=== PATIENT | male | born 1955 | race African-American/Black ===

== ENCOUNTER 2024-01-04 00:53 | Outpatient (CLI) | payer MEDICARE, MEDICAID, SELFPAY ==
[2024-01-04 03:31] LABS: Occult Blood,Stool Positive (Negative)
== END 2024-01-04 23:59 | disposition home or self-care (01) ==
LOC: LAB.DROPOF 01:05
PROVIDERS: PCP Internal Medicine Adolescent Medicine; Visit Provider Internal Medicine Adolescent Medicine
DX: K92.1 Melena (principal)
CPT/HCPCS: 82272; G0328

== ENCOUNTER 2024-02-25 11:53 | Outpatient (CLI) | payer MEDICARE, MEDICAID, SELFPAY ==
[2024-02-25 12:10] LABS: Basophils % 0.6 % (0.1-2.0); Eosinophils # 0.1 K/mm3 (0.0-0.4); Hematocrit 39.3 % (42.0-52.0); Hemoglobin 12.4 g/dL (14.1-18.0); Lymphocytes # 1.3 K/mm3 (0.7-4.5); Lymphocytes % 37.3 % (10-50); Mean Corpuscular HGB Conc 31.4 g/dL (31.8-35.4); Mean Corpuscular Hemoglobin 30.3 pg (27.0-31.2); Mean Corpuscular Volume 96.3 fl (80-94); Mean Platelet Volume 10.1 fl (7.4-10.4); Monocytes # 0.3 K/mm3 (0.1-1.0); Monocytes % 8.7 % (1.7-9.3); Neutrophils # 1.8 K/mm3 (1.8-7.8); Neutrophils % 51.4 % (37.0-80.0); Platelet Count 144 K/mm3 (142-424); Red Blood Count 4.08 M/mm3 (4.60-6.20); Red Cell Distribution Width 15.2 % (11.5-17.5); White Blood Count 3.6 K/mm3 (4.8-10.8)
[2024-02-25 12:28] LABS: Chloride 110 mmol/L (98-107); Potassium 4.5 mmoL/L (3.5-5.1); Sodium 139 mmol/L (136-145)
[2024-02-25 12:31] LABS: Anion Gap 8.5 mEq/L (5-15); Blood Urea Nitrogen 14 mg/dl (9-20); Calcium 8.9 mg/dl (8.4-10.2); Carbon Dioxide 25 mmol/L (22.0-30.0); Estimated Glomerular Filt Rate 74 ml/min (>60); GFR (African American) 90 ML/MIN (>60); Glucose 89 mg/dl (74-100)
== END 2024-02-25 23:59 | disposition home or self-care (01) ==
LOC: LAB.DROPOF 11:58
PROVIDERS: PCP Internal Medicine Adolescent Medicine; Visit Provider Nurse Practitioner Family
DX: E55.9 Vitamin D deficiency, unspecified (principal)
CPT/HCPCS: 80048; 85025

== ENCOUNTER → 2024-04-02 11:02 | Day surgery (SDC) | payer MEDICARE, SELFPAY ==
--- NOTE | 2024-04-02 13:36 | SUR.PREOP ---
1115: Upon preop interview, discovered per the patient that he had not received a bowel prep and he had eaten a full breakfast and drank a soft drink 30 minutes prior to arrival. Spoke with Kwasi Turner CRNA and pt was canceled. Called to reschedule procedures for 05/28. Then called [facility] to inform the pt's resident nurse of the procedures being canceled and when his new date is.
== END ==
PROVIDERS: PCP Internal Medicine; Visit Provider Surgery
PROC: 0DJ08ZZ Inspection of Upper Intestinal Tract, Via Natural or Artificial Opening Endoscopic (ICD-10-PCS; CPT 43235; principal; 2024-04-02 12:30)
DX: Z53.8 Procedure and treatment not carried out for other reasons (principal)

== ENCOUNTER 2024-05-28 08:30 | Day surgery (SDC) | payer MEDICARE, SELFPAY ==
[2024-05-28 08:51] VITALS: BP 150/94; PULSE 82; RESP 16; TEMP 36.4; O2SAT 95; BMI 23.7
[2024-05-28] MEDS: LACTATED RINGERS 1000ML 1,000 ML 25 ML IV (09:10)
--- NOTE | 2024-05-28 09:16 | P.PCN_ITS ---
Procedure: Date: 05/28/24 Patient Date of :: 1955 Procedure Performed:: Esophagogastroduodenoscopy with biopsy Colonoscopy Indications:: Anemia Performing Provider:: Shun Weinstein MD Referring Provider:: . Sedation:: Monitored anesthesia care Procedure:: After informed consent was obtained the patient was taken to the endoscopy suite. Sedation ensued after the patient was transferred to the left lateral decubitus position. Pulse, blood pressure, and oxygen saturation were monitored throughout the procedure. The endoscope was advanced beyond the duodenal bulb. Retroflexion within the gastric lumen was accomplished. The gastroscope was carefully removed. Digital rectal exam revealed no significant abnormality. The colonoscope was placed in position. The entire colon was evaluated. The c olonoscope was carefully removed and the patient was transferred to recovery in stable condition. Please see findings and specimens below for detail. Findings:: Gastroesophageal junction at 40 cm Mild streaking gastritis Bowel preparation moderate Fairly profound spasticity Scattered diverticulosis Hemorrhoidal cushions Specimens:: Antral biopsy Recommendations:: Follow-up pathology Likely short-repeat colonoscopy warranted (after consideration of barium enema) Consider small bowel follow-through followed by capsule endoscopy Consider barium enema secondary to profound spasticity Complications:: No immediate Estimated blood obtained (mL): 1 Colonoscopy Component Colonoscopy Component Was a colonoscopy performed during today's procedure?: Yes Recommended follow up colonoscopy of at least 10 years?: No If no, follow up colonoscopy recommended in ___ years?: (See above) Reason for not recommending >/= 10 yr follow-up interval?: (See above)
--- NOTE | 2024-05-28 09:17 | EXP.ANES.CKL ---
[facility] Disclaimer: The information contained in this section may have been updated after the patient was seen, as this information can be updated by other users. Medical History Hypertension Diverticulitis Cirrhosis of liver Hyperlipidemia Cerebral infarction Spondylosis Inguinal hernia Chronic pain Depression Hypercholesteremia GERD (gastroesophageal reflux disease) Surgical History H/O colonoscopy Previous back surgery Family History Other No significant family history Social History Smoking Status: Current every day smoker alcohol intake: former substance use type: denies use current occupational status: disabled Travel in the last 8 weeks: None adopted: No caregiver/support person: No foster care: No household members: other housing: correction lives independently: No marital status: caffeine: No [facility] Anesthesia Checklist Patient Identification Patient Identification: Arm Band and Verbal (Name & ) Structural Data Admitted From: Home Planned Operative Procedure/s: EGD/Colonoscopy Consent for Planned Operative Procedure(s) Verified: Yes Verified Documents: Surgical Consent and History and Physical NPO Status Verified Time NPO: 00:00 Additional verifications Anesthesia Reactions: No Airway Assessment Mallampati Score:: Class II C-Spine Mobility Assessed: Yes TMJ Mobility Assessed: Yes Dentition: Dentures-poor fitting (Removed) Neurological Assessment Level of Consciousness: Awake Hx Seizures: No Numbness or tingling in extremities: No Anesthesia Plan Anesthesia Risk discussed: Yes Anesthesia Plan: Verified ASA Class: III Anesthesia Type: MAC
[2024-05-28 09:58] VITALS: BP 122/86; PULSE 75; RESP 18; O2SAT 97
[2024-05-28 10:08] VITALS: BP 148/94; PULSE 75; RESP 18; O2SAT 97
[2024-05-28 10:18] VITALS: BP 156/96; PULSE 72; RESP 18; O2SAT 98
[2024-05-28 10:28] VITALS: BP 168/96; PULSE 74; RESP 18; O2SAT 98
== END 2024-05-28 10:28 | disposition home or self-care (01) ==
PROVIDERS: PCP Internal Medicine; Visit Provider Surgery
PROC: 0DJ08ZZ Inspection of Upper Intestinal Tract, Via Natural or Artificial Opening Endoscopic (ICD-10-PCS; CPT 43235; principal; 2024-05-28 09:30)
DX: D64.9 Anemia, unspecified (principal); K29.70 Gastritis, unspecified, without bleeding
CPT/HCPCS: 43239; 88305; J7120

== ENCOUNTER 2024-08-28 08:22 | Outpatient (CLI) | payer MEDICARE, SELFPAY ==
--- NOTE | 2024-08-28 08:28 | US_ITS ---
FINAL REPORT CLINICAL HISTORY: ELEVATED LIVER ENZYMES FINDINGS: RIGHT UPPER QUADRANT ULTRASOUND Technique: Ultrasound images of the right upper quadrant were obtained. The liver parenchyma is diffusely heterogeneous. Multiple low-attenuation lesions are seen throughout the liver, largest measures 2.1 x 1.2 cm. Multiple gallstones are identified. No gallbladder wall thickening is identified. Common duct is normal. The right kidney is unremarkable. IMPRESSION: Multiple gallstones. Diffusely heterogeneous liver with multiple low-attenuation lesions, indeterminate. Liver protocol CT is recommended to better characterize. Reviewed, Interpreted and Dictated by Pedrito Baker MD Transcribed by Izabela Neely Authenticated and [facility]
== END 2024-08-28 23:59 | disposition home or self-care (01) ==
LOC: RAD 08:23
PROVIDERS: PCP Nurse Practitioner Family; Visit Provider Nurse Practitioner Family
DX: R74.8 Abnormal levels of other serum enzymes (principal); K74.60 Unspecified cirrhosis of liver
CPT/HCPCS: 76705

== ENCOUNTER 2024-09-16 13:32 | Outpatient (CLI) | payer MEDICARE, SELFPAY ==
--- NOTE | 2024-09-16 13:34 | CT_ITS ---
FINAL REPORT TECHNIQUE: Axial CT images of the abdomen were obtained with IV contrast only. Coronal reformatted images were also obtained. This study was performed with techniques to keep radiation doses as low as reasonably achievable (ALARA). Individualized dose reduction techniques using automated exposure control or adjustment of mA and/or kV according to the patient''s size were employed. CLINICAL HISTORY: LIVER PROTOCOL, liver lesions seen on ultrasound COMPARISON: Ultrasound dated 08/28/2024 FINDINGS: There is a 9 mm nodule in the right lower lobe. Lung bases are otherwise clear. The liver is nodular in contour consistent with cirrhosis. Regenerative nodules are present. This exam was not performed as a Liver Protocol. No hypervascular lesions are identified given the limitations of this exam. The portal vein is patent. There are gallstones in the gallbladder. The spleen, adrenal glands, and pancreas are without acute abnormality. Bilateral hypodense renal lesions are likely cysts. There is no hydronephrosis. The GI tract demonstrates no obstruction. There is diverticulosis with no evidence of diverticulitis. There is a small amount of perihepatic ascites. There are multiple small celiac lymph nodes. A soft tissue nodule medial to the IVC, posterior to the portal vein, measures 35 mm. This could represent an enlarged lymph node or a partially exophytic hepatic regenerative nodule. There are mildly prominent portal lymph nodes. IMPRESSION: 9 mm right lower lobe nodule. 3-month follow-up chest CT or PET/CT is recommended for further evaluation. Cirrhosis. Regenerative nodules and heterogeneity may have accounted for the appearance on ultrasound. Exam was not performed as liver protocol. There is no convincing lesion to suggest hepatocellular carcinoma. Consider liver protocol MRI. 35 mm nodule, medial to the IVC, could be a regenerative nodule. A lymph node is not excluded. This could also be evaluated with MRI. Reviewed, Interpreted and Dictated by Idalia Alvarado MD Transcribed by Lianna Monroe Authenticated and [facility]
[2024-09-16] MEDS: SODIUM CHLORIDE 0.9% 10ML SYR (RAD ONLY) 10 ML IV (13:59)
[2024-09-16] MEDS: IOPAMIDOL-370 (76%);100ML BOTTLE 75 ML IV (13:59)
== END 2024-09-16 23:59 | disposition home or self-care (01) ==
LOC: RAD 13:32
PROVIDERS: PCP Nurse Practitioner Family; Visit Provider Nurse Practitioner Family
DX: K76.9 Liver disease, unspecified (principal); K74.60 Unspecified cirrhosis of liver
CPT/HCPCS: 74160; Q9967

== ENCOUNTER 2024-10-25 11:14 | Outpatient (CLI) | payer MEDICARE, SELFPAY ==
[2024-10-25 11:33] LABS: Basophils % 0.6 % (0.1-2.0); Eosinophils # 0.1 K/mm3 (0.0-0.4); Eosinophils % 1.8 % (0.1-12.0); Hematocrit 35.7 % (42.0-52.0); Hemoglobin 11.8 g/dL (14.1-18.0); Lymphocytes # 1.1 K/mm3 (0.7-4.5); Lymphocytes % 31.9 % (10-50); Mean Corpuscular HGB Conc 33.1 g/dL (31.8-35.4); Mean Corpuscular Hemoglobin 30.1 pg (27.0-31.2); Mean Corpuscular Volume 91.1 fl (80-94); Mean Platelet Volume 12.7 fl (7.4-10.4); Monocytes # 0.4 K/mm3 (0.1-1.0); Monocytes % 11.4 % (1.7-9.3); Neutrophils # 1.9 K/mm3 (1.8-7.8); Platelet Count 219 K/mm3 (142-424); Red Blood Count 3.92 M/mm3 (4.60-6.20); Red Cell Distribution Width 16.3 % (11.5-17.5); White Blood Count 3.4 K/mm3 (4.8-10.8)
[2024-10-25 12:01] LABS: Anion Gap 13.9 mEq/L (5-15); Blood Urea Nitrogen 22 mg/dl (9-20); Calcium 9.4 mg/dl (8.4-10.2); Carbon Dioxide 25 mmol/L (22.0-30.0); Chloride 101 mmol/L (98-107); Estimated Glomerular Filt Rate 40 ml/min (>60); GFR (African American) 49 ML/MIN (>60); Glucose 233 mg/dl (74-100); Potassium 4.9 mmoL/L (3.5-5.1); Sodium 135 mmol/L (136-145)
== END 2024-10-25 23:59 | disposition home or self-care (01) ==
LOC: LAB.DROPOF 11:14
PROVIDERS: PCP Internal Medicine Adolescent Medicine; Visit Provider Nurse Practitioner Family
DX: K70.30 Alcoholic cirrhosis of liver without ascites (principal); K21.9 Gastro-esophageal reflux disease without esophagitis; E78.00 Pure hypercholesterolemia, unspecified; F32.A Depression, unspecified; G89.29 Other chronic pain
CPT/HCPCS: 80048; 85025

== ENCOUNTER 2024-11-26 10:21 | Outpatient (CLI) | payer MEDICARE, SELFPAY ==
--- NOTE | 2024-11-26 10:46 | ECG_ITS ---
APPROVED REPORT Exam: Resting ECG HR:56 bpm ECG Measurements Heart Rate 56 AXES CO 206 P 80 QRSd 95 QRS -31 QT 416 T 43 QTc 409 Conclusion SINUS BRADYCARDIA WITH SINUS ARRHYTHMIA LEFT AXIS DEVIATION [QRS AXIS < -30] POSSIBLE ANTERIOR MYOCARDIAL INFARCTION , OF INDETERMINATE AGE [30 ms Q WAVE IN V3/V4, OR R < 0.2 mV IN V4] ABNORMAL ECG UNCONFIRMED REPORT Electronically signed by : Vern King MD 11/27/2024 07:53:55
[2024-11-26 11:17] LABS: Alanine Aminotransferase 70 U/L (12-78); Albumin Level 3.6 g/dl (3.5-5.0); Albumin/Globulin Ratio 0.9 (1.1-1.8); Alkaline Phosphatase 779 U/L (38-126); Anion Gap 12.1 mEq/L (5-15); Aspartate Amino Transferase 434 U/L (17-59); Bilirubin,Total 0.8 mg/dl (0.2-1.3); Blood Urea Nitrogen 17 mg/dl (9-20); Calcium 9.7 mg/dl (8.4-10.2); Carbon Dioxide 26 mmol/L (22.0-30.0); Chloride 104 mmol/L (98-107); Estimated Glomerular Filt Rate 50 ml/min (>60); GFR (African American) 61 ML/MIN (>60); Globulin 4.1 g/dL (1.3-3.2); Glucose 82 mg/dl (74-100); Potassium 5.1 mmoL/L (3.5-5.1); Sodium 137 mmol/L (136-145); Total Protein,Serum 7.7 g/dl (6.3-8.2)
[2024-11-26 11:32] LABS: INR 1.24 (0.9-1.1); Prothrombin Time 13.6 seconds (10.1-12.5)
[2024-11-26 11:34] LABS: Basophils % 0.2 % (0.1-2.0); Eosinophils # 0.1 Kmm3 (0.0-0.4); Eosinophils % 1.1 % (0.1-12.0); Hematocrit 39.7 % (42.0-52.0); Hemoglobin 13.4 g/dL (14.1-18.0); Lymphocytes # 0.8 K/mm3 (0.7-4.5); Lymphocytes % 17.9 % (10-50); Mean Corpuscular HGB Conc 33.8 g/dL (31.8-35.4); Mean Corpuscular Volume 88.8 fl (80-94); Monocytes # 0.3 K/mm3 (0.1-1.0); Monocytes % 6.2 % (1.7-9.3); Neutrophils # 3.5 K/mm3 (1.8-7.8); Neutrophils % 74.4 % (37.0-80.0); Nucleated Red Blood Cells # 0 10^3/uL; Nucleated Red Blood Cells % 0 %; Platelet Count 306 K/mm3 (142-424); Red Blood Count 4.47 M/mm3 (4.60-6.20); Red Cell Distribution Width 15.6 % (11.5-17.5); Red Cell Distribution Width-SD 50.4 fL; White Blood Count 4.7 K/mm3 (4.8-10.8)
== END 2024-11-26 23:59 | disposition home or self-care (01) ==
LOC: PREOP 10:22
PROVIDERS: PCP Internal Medicine; Visit Provider Surgery
DX: I49.8 Other specified cardiac arrhythmias (principal); K80.20 Calculus of gallbladder without cholecystitis without obstruction; R00.1 Bradycardia, unspecified; R94.31 Abnormal electrocardiogram [ECG] [EKG]
CPT/HCPCS: 80053; 85025; 85610; 93005

== ENCOUNTER 2024-12-03 10:06 | Outpatient (CLI) | payer MEDICARE, SELFPAY ==
--- NOTE | 2024-12-03 | CA_ITS ---
APPROVED REPORT Exam: Pharmacologic Technologist: Claribel Anderson Ht: 6 ft 2 in Wt: 170 lbs BSA: 2.03 m2 HR: 56 bpm BP: 151/90 mmHg Stress Test Details Test: Lexiscan HR Resting HR: 56 bpm Max Heart Rate (APMHR): 151.766535 bpm Max HR Achieved: 73 bpm Target HR (85% APMHR): 128.197427 bpm % of APMHR: 48.34 Recovery HR: 69 bpm BP Resting BP: 151.0/90.0 mmHg Max BP: 151.0/90.0 mmHg Recovery BP: 130.0/75.0 mmHg ECG Stress ECG Conclusion Symptoms: Dizziness Arrhythmias/Ectopy: PAC ST-T Changes: Less than [address] depression. Conclusion: EKG unremarkable due to Lexiscan infusion. Electronically signed by : Michelle Gatica MD 12/04/2024 13:02:42
--- NOTE | 2024-12-03 10:00 | CA_ITS ---
APPROVED REPORT EXAM: Comprehensive 2D, Doppler, and color-flow Echocardiogram Children[facility]S Nursery Assistant: Mirtha Huddleston CRT Ht: 6 ft 2 in Wt: 170lbs BSA: 2.03 BP: 153/84 mmHg Indications: Abnormal ECG, Chest Pain, CVA/TIA, Hyperlipidemia, Hypertension/HDD, Pre-Op, cirrhosis Pt unable to lay on side for additional apical images due to hip pain. s/p cva, w/c 2D Dimensions LA Volume 53.80 mL LA Volume Index 25.90 mL/m2 (M/F) 16-34 M-Mode Dimensions RVDd 3.47 cm (0.9-2.6) LA Diam 3.02 cm (1.9-4.0) LVDd 4.63 cm (3.5-5.7) LVDs 2.41 cm (3.5-5.7) IVSd 1.16 cm (0.6-1.1) PWd 1.28 cm (0.6-1.1) EF (Teich) 79.40% FS 47.90% EDV (Teich) 98.80 mL TAPSE 1.58 (<1.7) ESV (Teich) 20.40 mL LV Diastology E Decel Time 313 (160-240 msec) E/A Ratio 0.73 MED A' 8.00 cm/s LAT A' 8.30 cm/s Aortic Valve AO Peak GR. 5.50 mmHg Mitral Valve MV A Velocity 74.0 (40-130 cm/s) E/A Ratio 0.73 Pulmonary Valve PV Peak Velocity 94.0 (50-150 cm/s) Tricuspid Valve TR P. Velocity 307.00 cm/s RAP Estimate 10.00 mmHg RVSP 47.60 mmHg Left Ventricle The left ventricle is normal size. The left ventricular systolic function is normal. The left ventricular ejection fraction is within the normal range. Proximal septal thickening is noted. There is normal LV segmental wall motion. Transmitral Doppler flow pattern suggests impaired LV relaxation. LVEF is 55%. Right Ventricle Right ventricle is mildly dilated. Right ventricle is mildly hypokinetic. Atria Left atrium is mildly dilated. Right atrium is mildly dilated. There is no Doppler evidence of interatrial shunt. Aortic Valve Aortic valve is mildly thickened. There is no aortic valvular stenosis. Trace aortic regurgitation is present. Mitral Valve The mitral valve is normal in structure. No evidence of mitral valve stenosis. Trace mitral regurgitation. Tricuspid Valve Tricuspid valve is grossly normal in structure and function. Mild tricuspid regurgitation. RVSP is 30-35 mmHg. Pulmonic Valve The pulmonary valve is normal in structure. Trace pulmonic regurgitation. Great Vessels The aortic root is normal in size. IVC is normal in size and collapses >50% with inspiration. Pericardium There is no pericardial effusion. Other Information Study Quality: Fair Conclusion Normal LV systolic function. Mild RV dilation with mild reduction in RV function. Mild biatrial dilation. Mild TR. RVSP is 30-35 mmHg. Electronically signed by : Michelle Gatica MD 12/03/2024 12:50:44
--- NOTE | 2024-12-03 11:00 | NM_ITS ---
APPROVED REPORT Exam: Nuclear Stress Test Indication: Abnormal EKG, SOB, HTN, High cholesterol, Former tobacco use, Family history Patient Location: Outpatient Stress Tech: Claribel Anderson DC Tech:Rika Black, ARRT, RT (R)(N) Ht: 6 ft 2 in Wt: 173 lbs HR: 61 bpm BP: 151/90 mmHg BSA: 2.04 m2 TID: 1.01 BMI: 22.2 History: Abnormal EKG, SOB, HTN, High cholesterol, Former tobacco use, Family history Procedure: Patient received 0.4 mg of intravenous Lexiscan, resting heart rate 61 bpm, resting blood pressure 151/90 mmHg, with Lexiscan maximum heart rate achieved was 75 bpm which is % of the maximum predicted heart rate and blood pressure was 135/76 mmHg. With Lexiscan, patient denied any complaint of chest pain. Cardiac Stress and Resting SPECT Images: Cardiac Stress and Resting SPECT images were obtained using technetium 99m Myoview 31.8 mCi stress and 10.33 mCi at rest. Resting and stress imaging in supine and prone positions demonstrate no evidence of fixed or reversible perfusion defects. Gated imaging demonstrates normal global and regional LV systolic function. LVEF is calculated at 57%. Conclusion: No evidence of fixed or reversible perfusion defects. Gated imaging demonstrates normal global and regional LV systolic function. LVEF is calculated at 57%. Electronically signed by : Michelle Gatica MD 12/03/2024 15:12:18
[2024-12-03] MEDS: REGADENOSON 0.4MG/5ML SYRINGE 0.4 MG IV (13:04)
[2024-12-03] MEDS: SODIUM CHLORIDE 0.9% 10ML SYR (RAD ONLY) 10 ML IV ×2 (13:04)
[2024-12-03] MEDS: ISOTOPE MYOVIEW (PER STUDY) 1 DOSE IV (13:04)
== END 2024-12-03 23:59 | disposition home or self-care (01) ==
LOC: RT 10:07
PROVIDERS: PCP Internal Medicine; Visit Provider Physician Assistant
DX: Z01.810 Encounter for preprocedural cardiovascular examination (principal); I07.1 Rheumatic tricuspid insufficiency; I11.9 Hypertensive heart disease without heart failure; I49.1 Atrial premature depolarization; E78.00 Pure hypercholesterolemia, unspecified; G45.9 Transient cerebral ischemic attack, unspecified; I63.9 Cerebral infarction, unspecified; K74.60 Unspecified cirrhosis of liver; R94.31 Abnormal electrocardiogram [ECG] [EKG]; Z87.891 Personal history of nicotine dependence
CPT/HCPCS: 78452; 93017; 93018; 93306; A9502; J2785

== ENCOUNTER 2024-12-05 13:07 | Observation (INO) | payer MEDICARE, SELFPAY ==
[2024-11-26 13:18] VITALS: BMI 22.4
--- NOTE | 2024-11-26 13:37 | SUR.PREOP ---
EKG reviewed w/ R. YVON Turner. Determined pt should see cardiology for clearance. App[facility] for 11/28 @ 11:30[facility] and make arrangements to attend.
[2024-12-05] VITALS (17 sets, daily range): BP systolic 117–162; BP diastolic 68–88; PULSE 67–79; RESP 16–18; TEMP 36.3–43; O2SAT 91–100
[2024-12-05] MEDS: 0.9 % SODIUM CHLORIDE 1000ML 1,000 ML 25 ML IV (07:34)
--- NOTE | 2024-12-05 08:21 | EXP.ANES.CKL ---
[facility] Disclaimer: The information contained in this section may have been updated after the patient was seen, as this information can be updated by other users. Medical History Abnormal electrocardiogram [ECG] [EKG] Hypertension Diverticulitis Cirrhosis of liver Hyperlipidemia Cerebral infarction Spondylosis Inguinal hernia Chronic pain Depression Hypercholesteremia GERD (gastroesophageal reflux disease) Surgical History H/O colonoscopy Previous back surgery Family History Other Family history of diabetes mellitus Social History Smoking Status: Former smoker alcohol intake: former substance use type: denies use current occupational status: disabled Travel in the last 8 weeks?: None adopted: No caregiver/support person: No foster care: No household members: other housing: [facility] lives independently: No marital status: caffeine: No Have you lived/traveled outside US in past 30 days?: No Contact w/someone who lives/traveled outside US past 30 days?: No Exposure to someone with infectious disease in past 14 days?: No Do you have a fever (greater than 100.4 F or 38 C)?: No Have you tested positive for COVID-19?: No Exposed to someone with COVID-19 in past 14 days?: No Do you have a sore throat?: No Do you have a cough?: No Do you have any weakness?: No Do you have any diarrhea?: No Are you experiencing any unusual bleeding?: No Do you have any muscle aches/pain?: No Do you have any abdominal pain?: No Are you experiencing loss of taste or smell?: No [facility] Anesthesia Checklist Patient Identification Patient Identification: Arm Band Structural Data Admitted From: Home Planned Operative Procedure/s: Laparoscopic Cholecystectomy with Liver Biopsy Consent for Planned Operative Procedure(s) Verified: Yes Verified Documents: Surgical Consent and History and Physical NPO Status Verified Time NPO: 00:00 Additional verifications Anesthesia Reactions: No Hx Blood Transfusions: No Blood Transfusion Reaction: No Airway Assessment Mallampati Score:: Class II C-Spine Mobility Assessed: Yes TMJ Mobility Assessed: Yes Dentition: Poor Dentition (upper denture, lower partial removed) Neurological Assessment Level of Consciousness: Awake, Alert and Appropriate Anesthesia Plan Anesthesia Risk discussed: Yes Anesthesia Plan: Verified ASA Class: III Anesthesia Type: General
[2024-12-05] MEDS: CEFAZOLIN SODIUM 2 GM in 0.9 % SODIUM CHLORIDE 100 ML IV (08:40)
[2024-12-05] MEDS: LIDOCAINE 1% 20ML MDV 20 ML (09:00)
[2024-12-05] MEDS: SODIUM CHLORIDE IRRIG SOLUTION 3,000 ML 25 ML IR (09:00)
[2024-12-05 11:14] LABS: Basophils % 0.4 % (0.1-2.0); Eosinophils # 0.1 Kmm3 (0.0-0.4); Eosinophils % 0.9 % (0.1-12.0); Hematocrit 38.6 % (42.0-52.0); Hemoglobin 12.6 g/dL (14.1-18.0); Immature Granulocytes # 0.03 10^3uL; Immature Granulocytes % 0.5 %; Lymphocytes # 0.9 K/mm3 (0.7-4.5); Lymphocytes % 15.8 % (10-50); Mean Corpuscular HGB Conc 32.6 g/dL (31.8-35.4); Mean Corpuscular Hemoglobin 29.8 pg (27.0-31.2); Mean Corpuscular Volume 91.3 fl (80-94); Mean Platelet Volume 12.6 fl (7.4-10.4); Monocytes # 0.2 K/mm3 (0.1-1.0); Monocytes % 3.9 % (1.7-9.3); Neutrophils # 4.4 K/mm3 (1.8-7.8); Neutrophils % 78.5 % (37.0-80.0); Nucleated Red Blood Cells # 0 10^3/uL; Nucleated Red Blood Cells % 0 %; Platelet Count 217 K/mm3 (142-424); Red Blood Count 4.23 M/mm3 (4.60-6.20); Red Cell Distribution Width 17.3 % (11.5-17.5); Red Cell Distribution Width-SD 57.2 fL; White Blood Count 5.6 K/mm3 (4.8-10.8)
--- NOTE | 2024-12-05 12:23 | P.HP_ITS ---
HPI HPI HPI: Is a 69-year-old gentleman who just underwent cholecystectomy/liver biopsy. Secondary to overall operative difficulty/intraoperative blood loss the decision was made to place the patient in observation admission status postoperatively. Forwarded from office evaluation dated November 13, 2024 This is a 69-year-old gentleman seen in consultation from his primary care provider for evaluation regarding cholelithiasis. He has intermittent pain in the right upper quadrant with some radiation to the right flank and medial abdomen. No fever. No jaundice. Ultrasound dated August 28, 2024 reviewed. IMPRESSION: Multiple gallstones. Diffusely heterogeneous liver with multiple low- attenuation lesions, indeterminate. Liver protocol CT is recommended to better characterize. CT scan dated August 20162024 reviewed. IMPRESSION: 9 mm right lower lobe nodule. 3-month follow-up chest CT or PET/CT is recommended for further evaluation. Cirrhosis. Regenerative nodules and heterogeneity may have accounted for the appearance on ultrasound. Exam was not performed as liver protocol. There is no convincing lesion to suggest hepatocellular carcinoma. Consider liver protocol MRI. 35 mm nodule, medial to the IVC, could be a regenerative nodule. A lymph node is not excluded. This could also be evaluated with MRI. Labs dated October 25, 2024 reviewed. PFS PFS Disclaimer: The information contained in this section may have been updated after the patient was seen, as this information can be updated by other users. Medical History (Updated 12/05/24 @ 12:24 by Shun Weinstein MD) Abnormal electrocardiogram [ECG] [EKG] Hypertension Diverticulitis Cirrhosis of liver Hyperlipidemia Cerebral infarction Spondylosis Inguinal hernia Chronic pain Depression Hypercholesteremia GERD (gastroesophageal reflux disease) Surgical History H/O colonoscopy Previous back surgery Family History Other Family history of diabetes mellitus Social History Smoking Status: Former smoker alcohol intake: former substance use type: denies use current occupational status: disabled Travel in the last 8 weeks?: None adopted: No caregiver/support person: No foster care: No household members: other housing: retirement lives independently: No marital status: caffeine: No Other Medical History Have you received the Pneumonia Vaccine: Yes Review of Systems Review of Systems Review of systems:: pertinent systems reviewed and negative unless documented below *Gastrointestinal Gastrointestinal: Reports as per [facility] Meds Home Medications and Allergies Home Medications ?Medication ?Instructions ?Recorded ?Confirmed ?Type buspirone 7.5 mg tablet 7.5 mg PO BID 05/28/24 12/05/24 History cetirizine 5 mg tablet 5 mg PO DAILY 05/28/24 12/05/24 History cholecalciferol (vitamin D3) 50 50 mcg PO DAILY 05/28/24 12/05/24 History mcg (2,000 unit) capsule escitalopram oxalate 10 mg tablet 10 mg PO DAILY 05/28/24 12/05/24 History lisinopril 20 mg tablet 20 mg PO BID 05/28/24 12/05/24 History pantoprazole 40 mg tablet,delayed 40 mg PO DAILY 05/28/24 12/05/24 History release propylene glycol 0.6 % eye drops 1 drp ophthalmic (eye) QID PRN eyes 05/28/24 12/05/24 History (Systane Balance) lactulose 10 gram/15 mL oral 10 g PO DAILY 10/21/24 12/05/24 History solution acetaminophen 650 mg 650 mg PO Q12H PRN Pain 12/02/24 12/05/24 History tablet,extended release [id number] 4 mg-folic acid 1 tab PO DAILY 12/02/24 12/05/24 History 200 mcg-vit K 25 mcg-lutein tablet ondansetron HCl 4 mg tablet 4 mg PO Q8H PRN Nausea 12/02/24 12/05/24 History propranolol 10 mg tablet 10 mg PO BID 12/02/24 12/05/24 History spironolactone 25 mg tablet 25 mg PO DAILY 12/02/24 12/05/24 History tramadol 50 mg tablet 50 mg PO Q8H PRN Pain 12/02/24 12/05/24 History trazodone 150 mg tablet 150 mg PO HS 12/02/24 12/05/24 History hydrocodone 5 mg-acetaminophen 325 1 tab PO Q6H PRN post-op pain #17 12/05/24 Rx mg tablet tabs New Prescriptions to Start Prescriptions: hydrocodone-acetaminophen Shun Weinstein Allergies Allergy/AdvReac Type Severity Reaction Status Date / Time No Known Allergies Allergy Verified 12/02/24 10:41 Exam Data for Last 24 hours Vital signs and Labs for Last 24 Hours: Temp Pulse Resp BP Pulse Ox O2 Del Method 97.7 F 67 18 161/88 H 91 L Room Air 12/05/24 07:38 12/05/24 07:38 12/05/24 07:38 12/05/24 07:38 12/05/24 07:38 12/05/24 07:38 Laboratory Results - last 24 hr 12/05/24 10:45: WBC 5.6, RBC 4.23 L, Hgb 12.6 L, Hct 38.6 L, MCV 91.3, MCH 29.8, MCHC 32.6, RDW 17.3, Plt Count 217, MPV 12.6 H, Neut % (Auto) 78.5, Lymph % (Auto) 15.8, Hopkins % (Auto) 3.9, Eos % (Auto) 0.9, Baso % (Auto) 0.4, Neut # (Auto) 4.4, Lymph # (Auto) 0.9, Hopkins # (Auto) 0.2, Eos # (Auto) 0.1, Baso # (A uto) 0.0 Constitutional Constitutional: no acute distress *Routine HEENT Exam Head: Present normocephalic Eye: Present EOMI ENT: Present mucous membranes moist *Routine Neck Exam Neck: Present full ROM *Routine Respiratory Exam Respiratory: Absent respiratory distress *Routine Cardiovascular Exam Cardiovascular: Absent tachycardia *Routine Abdominal Exam Abdominal: Present soft *Routine Rectal Exam Rectal:: deferred *Routine Genitalia Exam Genitalia:: deferred *Routine Extremities Exam Extremities: Present full ROM *Routine Skin Exam Skin: Absent erythema *Routine Neurological Exam Neurological: Present alert Results Results Lab Results Last 24 Hours:: Laboratory Results - last 24 hr 12/05/24 10:45: WBC 5.6, RBC 4.23 L, Hgb 12.6 L, Hct 38.6 L, MCV 91.3, MCH 29.8, MCHC 32.6, RDW 17.3, Plt Count 217, MPV 12.6 H, Neut % (Auto) 78.5, Lymph % (Auto) 15.8, Hopkins % (Auto) 3.9, Eos % (Auto) 0.9, Baso % (Auto) 0.4, Neut # (Auto) 4.4, Lymph # (Auto) 0.9, Hopkins # (Auto) 0.2, Eos # (Auto) 0.1, Baso # (Auto) 0.0 Assessment and Plan *Assessment and plan (1) Calculus of gallbladder without cholecystitis without obstruction: Status: Acute Category: Medical Code(s): K80.20 - Calculus of gallbladder without cholecystitis without obstruction (2) Cirrhosis of liver: Problem Comment: Small amount of perihepatic ascites noted Status: Acute Qualifiers: Hepatic cirrhosis type: alcoholic cirrhosis Ascites presence: with ascites Qualified Code(s): K70.31 - Alcoholic cirrhosis of liver with ascites Category: Medical Code(s): K74.60 - Unspecified cirrhosis of liver (3) Abnormal CT of liver: Status: Acute Category: Medical Code(s): R93.2 - Abnormal findings on diagnostic imaging of liver and biliary tract Plan Cholecystectomy/liver biopsy today I have discussed the risks and benefits including, but not limited to: Bleeding Infection Damage to surrounding tissue Inherent risks of sedation The patient agrees to proceed.
--- NOTE | 2024-12-05 12:26 | P.OP_ITS ---
Date of procedure: 12/05/24 Pre-op Diagnosis:: Chronic calculus cholecystitis Cirrhosis Abnormal CT liver Post-op Diagnosis:: Same Procedure performed:: Laparoscopic cholecystectomy Liver biopsy Surgeon:: Shun Weinstein MD Anesthesia: RUDY Estimated blood loss (mL): 150 Operative findings:: Severe liver nodularity Distended gallbladder with serosal weeping Fairly severe infundibular thickening Operative note:: After informed consent was obtained, the patient was taken to the operating room and placed in the supine position. General anesthesia was induced and the abdomen was prepped and draped in a sterile fashion. After infiltration with local anesthetic an supraumbilical incision was made. A Veress needle was placed in position. The abdomen was insufflated. A 5 mm optical trocar was placed in position. Under direct visualization, a 12 mm trocar was placed in the subxiphoid position and 2 additional 5 mm trocars were placed in the right upper quadrant. Severe liver enlargement and nodularity noted. A tongue of hepatic tissue was draped over the infundibulum. This portion of hepatic tongue was resected as the liver biopsy. Significant sanguinous ooze at the biopsy site noted. This was controlled with a combination of harmonic berto and electrocautery initially. Additional hemostasis obtained later in the case by placement of Surgicel. The gallbladder was elevated up and over the liver margin. Severe infundibular thickening created difficulty in dissection and visualization. The decision was made to proceed with a dome down approach . A single clip was placed at the infundibular margin as a dissection endpoint armani . Harmonic berto were utilized to transect the gallbladder from the liver margin. The gallbladder itself was exceptionally friable and the decision was made to place Endoloops (x 2) along the mid-infundibulum. Once the Endoloops were placed the remaining gallbladder was transected with harmonic berto and placed in a retrieval bag. It was removed through the subxiphoid trocar site and passed off for pathologic evaluation. Attention then turned to hemostasis. Once again, a combination of harmonic berto, electrocautery, and Surgicel was utilized to achieve hemostasis along the gallbladder bed . 2 #10 flat Cayetano- Xavier drains were placed in the gallbladder fossa and exited through the right upper quadrant trocar sites. After thorough irrigation and no evidence of active bleeding was noted. Fascia at the subxiphoid trocar site was reapproximated utilizing 0 Ethibond. The remaining trocars were removed. All wounds were irrigated and skin was closed with 4-0 Monocryl in an interrupted mattress fashion to facilitate hemostasis. Dressings were applied. The patient's anesthetic agents were reversed and extubation was completed prior to transfer to recovery in stable condition. Condition: stable Disposition: PACU Specimens:: Gallbladder and contents Liver biopsy Complications:: No immediate
--- NOTE | 2024-12-05 12:36 | EXP.ANES.I ---
[facility] Anesthesia Record Part I Anesthesia Record I Intake, IV Amount: 1,500 Hydration: Adequate Estimated blood loss (mL): 300 Urine output (mL): 0 Blood Products used (#): none Blood Pressure: 162/79 SaO2: 97 Pulse Rate: 67 Airway Patency: Patent Respiratory Rate: 18 Temperature: 98 F Patient is:: Awake and Drowsy Stable to PACU at:: 12:44
[2024-12-05] MEDS: HYDROMORPHONE 2MG/ML SYRINGE 0.5 MG IV ×4 (12:45→13:00)
[2024-12-05] MEDS: MEPERIDINE 25MG/ML 1ML SYRINGE 12.5 MG IV (13:05)
[2024-12-05] MEDS: MORPHINE 2MG/ML SYRINGE 2 MG IV ×3 (13:05→13:15)
--- NOTE | 2024-12-05 15:19 | P.CONPHA_ITS ---
Pharmacy Intervention Comments: home medication list verified using [facility] MAR
--- NOTE | 2024-12-05 15:19 | HMH.PHAINT1 ---
Pharmacy Intervention Comments: home medication list verified using [facility] MAR
[2024-12-05] MEDS: 0.9 % SODIUM CHLORIDE 1000ML 1,000 ML 125 ML IV (16:57)
[2024-12-05] MEDS: PIPERCILLIN/TAZO 3.375 GM in 0.9 % SODIUM CHLORIDE 50 ML IV ×2 (16:57→21:09)
[2024-12-05 17:06] LABS: Hematocrit 37.7 % (42.0-52.0); Hemoglobin 12.2 g/dL (14.1-18.0)
[2024-12-05] MEDS: PROPRANOLOL 20MG TAB 10 MG PO (21:09)
[2024-12-05] MEDS: BUSPIRONE HCL 5 MG TABLET 7.5 MG PO (21:11)
[2024-12-05] MEDS: TRAZODONE 50MG TABLET 150 MG PO (21:12)
[2024-12-05] MEDS: LISINOPRIL 20MG TABLET 20 MG PO (21:12)
[2024-12-05] MEDS: SODIUM CHLORIDE 0.9% 10ML VIAL 10 ML IV (21:13)
[2024-12-05] MEDS: PANTOPRAZOLE 40MG VIAL 40 MG IV (21:13)
[2024-12-06] MEDS: PIPERCILLIN/TAZO 3.375 GM in 0.9 % SODIUM CHLORIDE 50 ML IV ×2 (01:45→08:14)
[2024-12-06] MEDS: HYDROCODONE/APAP 5/325 MG TABLET 1 TAB PO (01:45)
[2024-12-06] MEDS: 0.9 % SODIUM CHLORIDE 1000ML 1,000 ML 125 ML IV (01:46)
[2024-12-06 04:00] VITALS: BP 147/89; PULSE 62; RESP 16; TEMP 36.7; O2SAT 94; BMI 23.8
--- NOTE | 2024-12-06 04:47 | PC.NURSE ---
Pt is A&Ox4, and currently tolerating RA well at this time (titrated from 2L at beginning of this shift). Pt has c/o of moderate incision pain and was treated per SEP. Pt dressings remain intact, Both MC drains remain in place, with a total of 150 out this shift. Pt has rested intermittently this shift and has had no other complaints.
[2024-12-06] MEDS: MORPHINE 2MG/ML SYRINGE 1 MG IV (05:42)
[2024-12-06 06:17] LABS: Basophils % 0.2 % (0.1-2.0); Hematocrit 33.4 % (42.0-52.0); Immature Granulocytes # 0.02 10^3uL; Immature Granulocytes % 0.3 %; Lymphocytes # 1.1 K/mm3 (0.7-4.5); Lymphocytes % 17.8 % (10-50); Mean Corpuscular HGB Conc 32.9 g/dL (31.8-35.4); Mean Corpuscular Hemoglobin 30.3 pg (27.0-31.2); Mean Platelet Volume 12.1 fl (7.4-10.4); Monocytes # 0.7 K/mm3 (0.1-1.0); Monocytes % 11.5 % (1.7-9.3); Neutrophils # 4.1 K/mm3 (1.8-7.8); Neutrophils % 70.2 % (37.0-80.0); Nucleated Red Blood Cells # 0 10^3/uL; Nucleated Red Blood Cells % 0 %; Platelet Count 200 K/mm3 (142-424); Red Blood Count 3.63 M/mm3 (4.60-6.20); Red Cell Distribution Width 17.4 % (11.5-17.5); Red Cell Distribution Width-SD 58.4 fL; White Blood Count 5.9 K/mm3 (4.8-10.8)
--- NOTE | 2024-12-06 06:25 | PC.NURSE ---
Pt dressing was reinforced due to bleeding at drain site. Pt c/o increased incision pain. Pt had an additional 100ml out of MC drains. Contacted Dr. Weinstein, new orders for Morphine 1mg IV.
[2024-12-06 06:27] LABS: Alanine Aminotransferase 85 U/L (12-78); Albumin Level 2.9 g/dl (3.5-5.0); Albumin/Globulin Ratio 0.9 (1.1-1.8); Alkaline Phosphatase 625 U/L (38-126); Anion Gap 6.9 mEq/L (5-15); Aspartate Amino Transferase 554 U/L (17-59); Bilirubin,Total 0.7 mg/dl (0.2-1.3); Blood Urea Nitrogen 25 mg/dl (9-20); Calcium 8.3 mg/dl (8.4-10.2); Carbon Dioxide 23 mmol/L (22.0-30.0); Chloride 111 mmol/L (98-107); Creatinine Clearance Estimated 57 mL/min (50-200); Estimated Glomerular Filt Rate 50 ml/min (>60); GFR (African American) 61 ML/MIN (>60); Globulin 3.1 g/dL (1.3-3.2); Glucose 97 mg/dl (74-100); Potassium 4.9 mmoL/L (3.5-5.1); Sodium 136 mmol/L (136-145)
--- NOTE | 2024-12-06 07:44 | SW/DCPLANNER ---
Addendum entered by Tamiko Alex 12/06/24 09:20: I have updated Joana mcrae/ [facility] (formerly [facility]) that patient will return today. Addendum entered by Ashlee Forde RN 12/06/24 09:03: Called and spoke with Joana and the DON @ [facility] this morning, who confirmed that patient is ok to return with MC Drains in place. Plan is for to document daily output and send report with patient to f/u appt with Dr. Weinstein. Original Note: Patient currently resides at [facility] level of care. I will continue to follow up w/ Joana from [facility]. Discharge date is unknown at this time.
--- NOTE | 2024-12-06 07:49 | EXP.ANES.II ---
[facility] Anesthesia Record Part II Anesthesia Record Part II Discharge Time: 13:14 Destination: Medical Surgical Department PACU nurse assessment reviewed?: Yes Patient Condition:: Good Anesthesia Complications:: None Swallowing reflex intact?: Yes Airway Patency: Patent Cyanosis?: No Blood Pressure: 117/72 SaO2: 95 Respiratory Rate: 18 Pulse Rate: 74 Temperature: 97.5 F Mental Status: Alert & Oriented Pain level:: 5 Nausea and/or vomitting:: None Intake, IV Amount: 0 Hydration: Adequate
[2024-12-06 07:50] VITALS: BP 117/72; PULSE 74; RESP 18; TEMP 36.4; O2SAT 95
[2024-12-06 08:00] VITALS: BP 145/67; PULSE 55; RESP 18; TEMP 37; O2SAT 96
[2024-12-06] MEDS: LACTULOSE 20GM/30ML UDC 10 GM PO (08:12)
[2024-12-06] MEDS: PRENATAL MULTIVITAMIN W/IRON 1 EACH PO (08:13)
[2024-12-06] MEDS: CHOLECALCIFEROL 1,000 UNITS (25MCG) TABLET 50 MCG PO (08:13)
[2024-12-06] MEDS: LORATADINE 10MG TABLET 10 MG PO (08:13)
[2024-12-06] MEDS: ESCITALOPRAM 10MG TABLET 10 MG PO (08:13)
[2024-12-06] MEDS: SPIRONOLACTONE 25MG TABLET 25 MG PO (08:13)
[2024-12-06] MEDS: BUSPIRONE HCL 5 MG TABLET 7.5 MG PO (08:13)
[2024-12-06] MEDS: LISINOPRIL 20MG TABLET 20 MG PO (08:13)
[2024-12-06] MEDS: PROPRANOLOL 20MG TAB 10 MG PO (08:14)
--- NOTE | 2024-12-06 08:29 | EXP.SURG.PN ---
Subjective Patient reports: no new complaints Exam Data for Last 24 hours Vital signs and Labs for Last 24 Hours: Temp Pulse Resp BP Pulse Ox O2 Del Method O2 Flow Rate 98.6 F 55 L 18 145/67 H 96 Room Air 1 12/06/24 08:00 12/06/24 08:00 12/06/24 08:00 12/06/24 08:00 12/06/24 08:00 12/06/24 08:27 12/06/24 03:00 Laboratory Results - last 24 hr 12/05/24 10:45: WBC 5.6, RBC 4.23 L, Hgb 12.6 L, Hct 38.6 L, MCV 91.3, MCH 29.8, MCHC 32.6, RDW 17.3, Plt Count 217, MPV 12.6 H, Neut % (Auto) 78.5, Lymph % (Auto) 15.8, [place] % (Auto) 3.9, Eos % (Auto) 0.9, Baso % (Auto) 0.4, Neut # (Auto) 4.4, Lymph # (Auto) 0.9, [place] # (Auto) 0.2, Eos # (Auto) 0.1, Baso # (Auto) 0.0, Blood Type O Positive, Antibody Screen Negative 12/05/24 16:59: Hgb 12.2 L, Hct 37.7 L 12/06/24 05:23: WBC 5.9, RBC 3.63 L, Hgb 11.0 L, Hct 33.4 L, MCV 92.0, MCH 30.3, MCHC 32.9, RDW 17.4, Plt Count 200, MPV 12.1 H, Neut % (Auto) 70.2, Lymph % (Auto) 17.8, [place] % (Auto) 11.5 H, Eos % (Auto) 0.0 L, Baso % (Auto) 0.2, Neut # (Auto) 4.1, Lymph # (Auto) 1.1, [place] # (Auto) 0.7, Eos # (Auto) 0.0, Baso # (Auto) 0.0, Sodium 136, Potassium 4.9, Chloride 111 H, Carbon Dioxide 23, Anion Gap 6.9, BUN 25 H, Creatinine 1.40 H, Estimated Creat Clear 57, Estimated GFR 50 L, Est GFR ( Amer) 61, Glucose 97, Calcium 8.3 L, Total Bilirubin 0.7, AST 554 H*, ALT 85 H, Alkaline Phosphatase 625 H, Total Protein 6.0 L, Albumin 2.9 L, Globulin 3.1, Albumin/Globulin Ratio 0.9 L I & O for Last 24 hours: Intake & Output 12/03/24 12/04/24 12/05/24 12/06/24 11:59 11:59 11:59 11:59 Intake Total 2585 / 2585 Output Total 670 / 670 Balance 1914 / 1914 Weight 179 lb 8 oz Constitutional Constitutional: no acute distress *Routine Respiratory Exam Respiratory: Absent respiratory distress *Routine Cardiovascular Exam Cardiovascular: Absent tachycardia *Routine Abdominal Exam Comments: Dressings in place. No spreading cellulitis. Cayetano-Xavier drainage serosanguineous. Progress Note: A&P Assessment and plan (1) Calculus of gallbladder without cholecystitis without obstruction: Status: Acute (2) Cirrhosis of liver: Problem details: Small amount of perihepatic ascites noted Status: Acute (3) Abnormal CT of liver: Status: Acute Assessment and Plan Assessment and Plan for All Diagnoses:: Overall, doing fairly well postoperative day 1 status post laparoscopic cholecystectomy and liver biopsy. Repeat hemoglobin/hematocrit at 1030 (ordered) Continue Cayetano-Xavier drainage for now Possible discharge back to intermediate facility later today pending results of follow-up labs
--- NOTE | 2024-12-06 10:33 | HMH.PTEV ---
Physical Therapy Evaluation Rehab PT IP Evaluation Start: 12/06/24 08:22 Freq: .once Status: Active Protocol: Document 12/06/24 09:35 JAMA (Rec: 12/06/24 10:32 PHOTAYLOR [id number]) Subjective/History History History Patient is a 69 year-old male who presents day 1 post laparoscopic cholecystectomy and liver biopsy. Patient currently resides in [facility] care at [facility] and ambulates via . Pt is able to transfer independently to and dress and bathe himself . Subjective Subjective Patient presents resting in bed and is alert and oriented. He is willing to participate with PT this morning. He c/o pain in his abdomen, up to 8 10 when he moves. Pt transferred to and returned to bed with call light in reach. [facility] How much help from another person do you currently need... Turning from your back to your side None while in a flat bed without using bedrails? Moving from lying on back to sitting on None the side of a flat bed without using bedrails? Moving to and from a bed to a chair ( A little including a wheelchair)? Standing up from a chair using your arms A little ? (e.g., wheelchair, bedside chair) Walking in hospital room? A little Climbing 3-5 steps with a railing? A little Mobility Score 20 Mobility Level [facility] Mobility Calculator Mobility 6 Walk 10 steps or more Rehab PT IP Eval Objective Appearance Patient Behavior Appropriate,Cooperative Patient Orientation Person,Place,Time Difficulty following instructions none Speech Pattern Clear,Appropriate Ambulation Patient Able to Ambulate No Balance Ability to Arise Able, uses arms to help Sitting Balance Steady, safe Standing Balance Steady, wide stance Dynamic Sitting Balance Ability Normal Dynamic Standing Balance Ability Good Transfers Bed Transfer Ability Independent Chair Transfer Ability Contact Guard/Hand Hold Sit to Stand Bed Transfer Ability Minimal x 1 (25% assist) Sit to Stand Chair Transfer Ability Minimal x 1 (25% assist) Rehab PT IP prob,goals,plan Problems Date of Evaluation: 12/06/24 PT IP Problems Bed Mobility,Transfers,Gait, Safety Rehab Potential Rehab Potential Good Equipment Needs Assistive Devices Wheelchair Plan PT Intervention Plan Bed Mobility,Transfers,Gait, Safety,Therapeutic Exercise PT Plan Frequency Daily Duration LOS Discharge Goals Bed Transfer Ability Independent Sit to Stand Chair Transfer Ability Independent Ambulation Assistive Device Rolling Walker Ambulation Distance (feet) 3 Discharge Plan PT Discharge Plan Patient is currently most appropriate to return to his [facility] once medically stable for d/c. He required CGA to [place] x1 for transfer to which is approaching his stated baseline. Pt demonstrated some weakness in his LE musculature but was able to stand to transfer. Skilled acute therapy is currently indicated to improve LE and UE strength to allow pt to transfer independently and return to PLOF with all ADLs. Outpatient therapy services are recommended to further increase LE strength, endurance, and ambulation ability. Eval Complexity Eval Charge Codes 03829 - High Complexity PHYSICIAN CERTIFICATION: I certify the specified therapy services for [place]t are required, authorized, and reviewed every 30 days.
[2024-12-06 10:37] LABS: Hematocrit 34.3 % (42.0-52.0); Hemoglobin 11.2 g/dL (14.1-18.0)
--- NOTE | 2024-12-06 11:38 | EXP.DC.SUM ---
General Admission date:: 12/05/24 Discharge date: 12/06/24 HPI HPI HPI: Is a 69-year-old gentleman who just underwent cholecystectomy/liver biopsy. Secondary to overall operative difficulty/intraoperative blood loss the decision was made to place the patient in observation admission status postoperatively. Forwarded from office evaluation dated November 13, 2024 This is a 69-year-old gentleman seen in consultation from his primary care provider for evaluation regarding cholelithiasis. He has intermittent pain in the right upper quadrant with some radiation to the right flank and medial abdomen. No fever. No jaundice. Ultrasound dated August 28, 2024 reviewed. IMPRESSION: Multiple gallstones. Diffusely heterogeneous liver with multiple low-attenuation lesions, indeterminate. Liver protocol CT is recommended to better characterize. CT scan dated August 20162024 reviewed. IMPRESSION: 9 mm right lower lobe nodule. 3-month follow-up chest CT or PET/CT is recommended for further evaluation. Cirrhosis. Regenerative nodules and heterogeneity may have accounted for the appearance on ultrasound. Exam was not performed as liver protocol. There is no convincing lesion to suggest hepatocellular carcinoma. Consider liver protocol MRI. 35 mm nodule, medial to the IVC, could be a regenerative nodule. A lymph node is not excluded. This could also be evaluated with MRI. Labs dated October 25, 2024 reviewed. Hospital Course Hospital Course Hospital Course: The patient underwent laparoscopic cholecystectomy and liver biopsy on December 05, 2024. Please see operative report for detail. Postoperatively, he convalesced well. He he remained afebrile with stable/normal vital signs. Cayetano-Xavier drain management was ongoing. The patient's home medications were reimplemented on the morning of postoperative day 1. His diet was slowly advanced. Follow-up hemoglobin at the time of discharge (transfer back to [facility]) was stable at 11.2. Exam Data for Last 24 hours Vital signs and Labs for Last 24 Hours: Temp Pulse Resp BP Pulse Ox O2 Del Method O2 Flow Rate 98.6 F 55 L 18 145/67 H 96 Room Air 1 12/06/24 08:00 12/06/24 08:00 12/06/24 08:00 12/06/24 08:00 12/06/24 08:00 12/06/24 10:36 12/06/24 03:00 Laboratory Results - last 24 hr 12/05/24 10:45: Blood Type O Positive, Antibody Screen Negative 12/05/24 16:59: Hgb 12.2 L, Hct 37.7 L 12/06/24 05:23: WBC 5.9, RBC 3.63 L, Hgb 11.0 L, Hct 33.4 L, MCV 92.0, MCH 30.3, MCHC 32.9, RDW 17.4, Plt Count 200, MPV 12.1 H, Neut % (Auto) 70.2, Lymph % (Auto) 17.8, [place] % (Auto) 11.5 H, Eos % (Auto) 0.0 L, Baso % (Auto) 0.2, Neut # (Auto) 4.1, Lymph # (Auto) 1.1, [place] # (Auto) 0.7, Eos # (Auto) 0.0, Baso # (Auto) 0.0, Sodium 136, Potassium 4.9, Chloride 111 H, Carbon Dioxide 23, Anion Gap 6.9, BUN 25 H, Creatinine 1.40 H, Estimated Creat Clear 57, Estimated GFR 50 L, Est GFR ( Amer) 61, Glucose 97, Calcium 8.3 L, Total Bilirubin 0.7, AST 554 H*, ALT 85 H, Alkaline Phosphatase 625 H, Total Protein 6.0 L, Albumin 2.9 L, Globulin 3.1, Albumin/Globulin Ratio 0.9 L 12/06/24 10:30: Hgb 11.2 L, Hct 34.3 L I & O for Last 24 hours: Intake & Output 12/03/24 12/04/24 12/05/24 12/06/24 11:59 11:59 11:59 11:59 Intake Total 2760 / 2760 Output Total 820 / 820 Balance 1939 / 1939 Weight 179 lb 8 oz Constitutional Constitutional: no acute distress *Routine HEENT Exam Head: Present normocephalic Eye: Present EOMI ENT: Present mucous membranes moist *Routine Neck Exam Neck: Present supple Routine Chest/Breast/Axilla Exam Chest wall: Absent tenderness *Routine Respiratory Exam Respiratory: Absent respiratory distress *Routine Cardiovascular Exam Cardiovascular: Absent tachycardia *Routine Abdominal Exam Abdominal: Present soft *Routine Rectal Exam Patient deferred: visual exam *Routine Exam Patient deferred: penile exam *Routine Extremities Exam Extremities: Absent tenderness Routine Back/Spine/Pelvis Exam Back/Spine: Absent muscle spasm *Routine Skin Exam Skin: Absent erythema *Routine Neurological Exam Neurological: Present alert Routine Psychiatric Exam Psychiatric: Present normal affect Results Data Completed and Pending Labs on day of discharge: Labs from last 24 hours 12/06/24 12/06/24 12/05/24 10:30 05:23 16:59 WBC 5.9 RBC 3.63 L Hgb 11.2 L 11.0 L 12.2 L Hct 34.3 L 33.4 L 37.7 L MCV 92.0 MCH 30.3 MCHC 32.9 RDW 17.4 Plt Count 200 MPV 12.1 H Neut % (Auto) 70.2 Lymph % (Auto) 17.8 [place] % (Auto) 11.5 H Eos % (Auto) 0.0 L Baso % (Auto) 0.2 Neut # (Auto) 4.1 Lymph # (Auto) 1.1 [place] # (Auto) 0.7 Eos # (Auto) 0.0 Baso # (Auto) 0.0 Sodium 136 Potassium 4.9 Chloride 111 H Carbon Dioxide 23 Anion Gap 6.9 BUN 25 H Creatinine 1.40 H Estimated Creat Clear 57 Estimated GFR 50 L Est GFR ( Amer) 61 Glucose 97 Calcium 8.3 L Total Bilirubin 0.7 AST 554 H* ALT 85 H Alkaline Phosphatase 625 H Total Protein 6.0 L Albumin 2.9 L Globulin 3.1 Albumin/Globulin Ratio 0.9 L Blood Type Antibody Screen 12/05/24 10:45 WBC RBC Hgb Hct MCV MCH MCHC RDW Plt Count MPV Neut % (Auto) Lymph % (Auto) [place] % (Auto) Eos % (Auto) Baso % (Auto) Neut # (Auto) Lymph # (Auto) [place] # (Auto) Eos # (Auto) Baso # (Auto) Sodium Potassium Chloride Carbon Dioxide Anion Gap BUN Creatinine Estimated Creat Clear Estimated GFR Est GFR ( Amer) Glucose Calcium Total Bilirubin AST ALT Alkaline Phosphatase Total Protein Albumin Globulin Albumin/Globulin Ratio Blood Type O Positive Antibody Screen Negative DS: Diagnosis Discharge Diagnosis (1) Calculus of gallbladder without cholecystitis without obstruction: Status: Acute Code(s): K80.20 - Calculus of gallbladder without cholecystitis without obstruction (2) Cirrhosis of liver: Status: Acute Code(s): K74.60 - Unspecified cirrhosis of liver Qualifiers: Hepatic cirrhosis type: alcoholic cirrhosis Ascites presence: with ascites Qualified Code(s): K70.31 - Alcoholic cirrhosis of liver with ascites Problem details: Small amount of perihepatic ascites noted (3) Abnormal CT of liver: Status: Acute Code(s): R93.2 - Abnormal findings on diagnostic imaging of liver and biliary tract (4) Alcoholism in remission: Status: Acute Code(s): F10.21 - Alcohol dependence, in remission (5) Hypertension: Status: Acute Code(s): I10 - Essential (primary) hypertension Meds Home Medications and Allergies Home Medications ?Medication ?Instructions ?Recorded ?Confirmed ?Type buspirone 7.5 mg tablet 7.5 mg PO BID 05/28/24 12/05/24 History cetirizine 5 mg tablet 5 mg PO HS 05/28/24 12/05/24 History cholecalciferol (vitamin D3) 50 50 mcg PO DAILY 05/28/24 12/05/24 History mcg (2,000 unit) capsule escitalopram oxalate 10 mg tablet 10 mg PO HS 05/28/24 12/05/24 History lisinopril 20 mg tablet 20 mg PO DAILY 05/28/24 12/05/24 History pantoprazole 40 mg tablet,delayed 40 mg PO HS 05/28/24 12/05/24 History release propylene glycol 0.6 % eye drops 1 drp ophthalmic (eye) QID PRN Dry 05/28/24 12/05/24 History (Systane Balance) Eyes lactulose 10 gram/15 mL oral 10 g PO DAILY 10/21/24 12/05/24 History solution acetaminophen 650 mg 650 mg PO Q6HP PRN MILD PAIN AND 12/02/24 12/05/24 History tablet,extended release FEVER [id number] 4 mg-folic acid 1 tab PO DAILY 12/02/24 12/05/24 History 200 mcg-vit K 25 mcg-lutein tablet ondansetron HCl 4 mg tablet 4 mg PO Q6HP PRN Nausea 12/02/24 12/05/24 History propranolol 10 mg tablet 10 mg PO BID 12/02/24 12/05/24 History tramadol 50 mg tablet 50 mg PO Q8H PRN Moderate Pain 12/02/24 12/05/24 History (Scale Score 5-6) trazodone 150 mg tablet 150 mg PO HS 12/02/24 12/05/24 History hydrocodone 5 mg-acetaminophen 325 1 tab PO Q6H PRN post-op pain #17 12/05/24 Rx mg tablet tabs New Prescriptions to Start Prescriptions: hydrocodone-acetaminophen Shun Weinstein Allergies Allergy/AdvReac Type Severity Reaction Status Date / Time No Known Allergies Allergy Verified 12/02/24 10:41 Discharge Plan Disposition Patient Disposition: [facility] Discharge Order Discharge Orders: Discharge Order (Routine); Ordered 12/06/24 Ordered By: Shun Weinstein Follow up Plan Follow up with: Shun Weinstein MD [Staff Physician] - 1 week Prescriptions/Medication Reconciliation: New hydrocodone-acetaminophen 5-325 mg tablet 1 tab PO Q6H PRN (Reason: post-op pain) Qty: 17 0RF Continued lactulose 10 gram/15 mL solution 10 g PO DAILY tramadol 50 mg tablet 50 mg PO Q8H PRN (Reason: Moderate Pain (Scale Score 5-6)) propranolol 10 mg tablet 10 mg PO BID trazodone 150 mg tablet 150 mg PO HS nlrlqief-knx-ldkn-FA-vit K-lut 4 mg iron-200 mcg-25 mcg tablet 1 tab PO DAILY ondansetron HCl 4 mg tablet 4 mg PO Q6HP PRN (Reason: Nausea) cetirizine 5 mg Tablet 5 mg PO HS lisinopril 20 mg Tablet 20 mg PO DAILY pantoprazole 40 mg Tablet,Delayed Release (Dr/Ec) 40 mg PO HS buspirone 7.5 mg Tablet 7.5 mg PO BID escitalopram oxalate 10 mg Tablet 10 mg PO HS cholecalciferol (vitamin D3) 50 mcg (2,000 unit) Capsule 50 mcg PO DAILY Systane Balance 0.6 % Drops 1 drp OPHTHALMIC (EYE) QID PRN (Reason: Dry Eyes) Held acetaminophen 650 mg tablet extended release 650 mg PO Q6HP PRN (Reason: MILD PAIN AND FEVER) Hold Instructions: Resume on 12/09/24. Hold while taking [place] Problem Reconciliation Problems Reviewed?: Yes Patient Discharge Instructions ACTIVITY: Ambulate as tolerated and No heavy lifting DIET: advance to your usual diet Additional Instructions: Remove dressings and shower after 48 hours MC drain management (record daily volumes) Print Language: Cambodian Providers Primary Care Provider: Steven De Jesus Admit Provider: Shun Weinstein Attending Provider: Shun Weinstein
[2024-12-06] MEDS: TRAMADOL 50MG TABLET 50 MG PO (11:51)
[2024-12-06 12:00] VITALS: BP 127/67; PULSE 62; RESP 20; TEMP 36.7; O2SAT 96
--- NOTE | 2024-12-06 12:34 | PC.NURSE ---
report called to [place].
--- NOTE | 2024-12-06 12:40 | PC.NURSE ---
Son Brenden aware of patient's d/c.
== END 2024-12-06 19:18 ==
LOC: 2ND 13:07
PROVIDERS: Nurse Anesthetist, Certified Registered; Admitting Provider Surgery; PCP Internal Medicine; Visit Provider Surgery
PROC: 0FT44ZZ Resection of Gallbladder, Percutaneous Endoscopic Approach (ICD-10-PCS; CPT 47562; principal; 2024-12-05 08:15)
DX: K80.20 Calculus of gallbladder without cholecystitis without obstruction (principal); K70.31 Alcoholic cirrhosis of liver with ascites; R93.2 Abnormal findings on diagnostic imaging of liver and biliary tract; F10.21 Alcohol dependence, in remission; I10 Essential (primary) hypertension; E78.5 Hyperlipidemia, unspecified; R94.31 Abnormal electrocardiogram [ECG] [EKG]; Z87.891 Personal history of nicotine dependence; Z79.899 Other long term (current) drug therapy
CPT/HCPCS: 47379; 47562; 36415; 80053; 85014; 85018; 85025; 86850; 96374; 97163; J3490; G0378; J0690; J1100; J1171; J2175; J2270; J2405; J2543; J3010; J7030

== ENCOUNTER 2024-12-10 13:53 | Outpatient (CLI) | payer MEDICARE, SELFPAY ==
[2024-12-10 14:15] LABS: Basophils % 0.2 % (0.1-2.0); Eosinophils % 0.7 % (0.1-12.0); Hematocrit 34.6 % (42.0-52.0); Hemoglobin 11.4 g/dL (14.1-18.0); Immature Granulocytes # 0.02 10^3uL; Immature Granulocytes % 0.4 %; Lymphocytes # 1.2 K/mm3 (0.7-4.5); Lymphocytes % 21.8 % (10-50); Mean Corpuscular HGB Conc 32.9 g/dL (31.8-35.4); Mean Corpuscular Hemoglobin 29.8 pg (27.0-31.2); Mean Corpuscular Volume 90.3 fl (80-94); Mean Platelet Volume 12.8 fl (7.4-10.4); Monocytes # 0.8 K/mm3 (0.1-1.0); Monocytes % 14.9 % (1.7-9.3); Neutrophils # 3.3 K/mm3 (1.8-7.8); Nucleated Red Blood Cells # 0 10^3/uL; Nucleated Red Blood Cells % 0 %; Platelet Count 280 K/mm3 (142-424); Red Blood Count 3.83 M/mm3 (4.60-6.20); Red Cell Distribution Width-SD 57.8 fL; White Blood Count 5.4 K/mm3 (4.8-10.8)
[2024-12-10 14:24] LABS: Chloride 109 mmol/L (98-107)
[2024-12-10 14:25] LABS: Albumin Level 2.6 g/dl (3.5-5.0); Potassium 4.3 mmoL/L (3.5-5.1); Sodium 137 mmol/L (136-145)
[2024-12-10 14:27] LABS: Blood Urea Nitrogen 21 mg/dl (9-20); Estimated Glomerular Filt Rate 50 ml/min (>60); GFR (African American) 61 ML/MIN (>60)
[2024-12-10 14:28] LABS: Alanine Aminotransferase 88 U/L (12-78); Albumin/Globulin Ratio 0.8 (1.1-1.8); Alkaline Phosphatase 645 U/L (38-126); Anion Gap 10.3 mEq/L (5-15); Aspartate Amino Transferase 491 U/L (17-59); Calcium 8.8 mg/dl (8.4-10.2); Carbon Dioxide 22 mmol/L (22.0-30.0); Globulin 3.2 g/dL (1.3-3.2); Glucose 111 mg/dl (74-100); Total Protein,Serum 5.8 g/dl (6.3-8.2)
== END 2024-12-10 23:59 | disposition home or self-care (01) ==
LOC: LAB.DROPOF 13:55
PROVIDERS: PCP Internal Medicine Adolescent Medicine; Visit Provider Nurse Practitioner Family
DX: K70.30 Alcoholic cirrhosis of liver without ascites (principal)
CPT/HCPCS: 80053; 85025

== ENCOUNTER 2024-12-15 08:33 | Emergency (ER) | payer MEDICARE, SELFPAY ==
[2024-12-15] VITALS (14 sets, daily range): BP systolic 106–134; BP diastolic 66–80; PULSE 65–87; RESP 13–23; TEMP 36.6–36.9; O2SAT 85–95; BMI 22.4
--- NOTE | 2024-12-15 08:46 | ECG_ITS ---
APPROVED REPORT Exam: Resting ECG HR:76 bpm ECG Measurements Heart Rate 76 AXES MO 178 P 88 QRSd 98 QRS -54 QT 373 T 67 QTc 404 Conclusion SINUS RHYTHM WITH OCCASIONAL SUPRAVENTRICULAR PREMATURE COMPLEXES LEFT AXIS DEVIATION [QRS AXIS < -30] POSSIBLE ANTERIOR MYOCARDIAL INFARCTION , OF INDETERMINATE AGE [30 ms Q WAVE IN V3/V4, OR R < 0.2 mV IN V4] ABNORMAL ECG UNCONFIRMED REPORT Electronically signed by : [place], 12/15/2024 16:05:04
--- NOTE | 2024-12-15 09:09 | PC.NURSE ---
Pt MC drain site cleansed, MC drain drained, will strip tubing to remove clots.
--- NOTE | 2024-12-15 09:13 | PC.NURSE ---
in room talking with patient at this time.
--- NOTE | 2024-12-15 09:19 | CT_ITS ---
PROCEDURE INFORMATION: Exam: CTA Chest With Contrast Exam date and time: 12/15/2024 10:07 AM Age: 69 years old Clinical indication: Other: Recent surgery, dx of hcc, dyspnea, hypoxia; Prior surgery; Surgery date: 3-7 days post-operative; Surgery type: PT states it was gallbladder SX, TECHNIQUE: Imaging protocol: Computed tomographic angiography of the chest with contrast. Exam focused on the arteries. 3D rendering (Not supervised by radiologist): MIP and/or 3D reconstructed images were created by the technologist. Radiation optimization: All CT scans at this facility use at least one of these dose optimization techniques: automated exposure control; mA and/or kV adjustment per patient size (includes targeted exams where dose is matched to clinical indication); or iterative reconstruction. Contrast material: ISOVUE; Contrast volume: 70 ml; Contrast route: INTRAVENOUS (IV); COMPARISON: CT ABDOMEN W CON 09/16/2024 1:43 PM FINDINGS: Pulmonary arteries: Pulmonary vasculature is adequately opacified without filling defects or other evidence of acute pulmonary embolism. Aorta: Unremarkable. No aortic aneurysm. No aortic dissection. Lungs: COPD with upper lobe emphysematous changes. Multiple circumscribed pulmonary nodules of varying sizes measuring up to 1.2 cm within the lower portion of both lung zones suspicious for pulmonary metastasis. Mild right basilar subsegmental atelectasis. Remaining lung blackwood are clear. There is mucous plugging or debris within the distal portion of the right mainstem bronchus which is partially obstructed. Pleural spaces: Unremarkable. No pneumothorax. No pleural effusion. Heart: Heart is not significantly enlarged. There are mild calcifications of the coronary arteries. No significant pericardial effusion. Lymph nodes: Unremarkable. No enlarged lymph nodes. Intraperitoneal space: Small amount of free intraperitoneal air in the upper abdomen redemonstrated presumably related to recent surgery. Bones/joints: Mild degenerative changes mid-lower thoracic spine. No acute abnormalities. Few small radiolucent bone lesions lower thoracic spine, nonspecific. No acute bony abnormalities detected. Soft tissues: There is also some small gas bubbles within the soft tissues in the right axilla presumably related to recent surgical procedure that should be correlated with history. IMPRESSION: 1. Negative CT angiogram of the chest. No evidence of acute pulmonary embolism. 2. COPD with scattered pulmonary nodules measuring up to 1.2 cm suspicious for pulmonary metastasis. 3. Retained mucus or debris partially obstructing distal aspect of the right mainstem bronchus with mild right basilar subsegmental atelectasis. 4. Unexplained subcutaneous gas bubbles within the right axilla presumably iatrogenic in nature. Please confirm with history. 5. Additional findings as above.
--- NOTE | 2024-12-15 09:19 | CT_ITS ---
PROCEDURE INFORMATION: Exam: CT Abdomen And Pelvis With Contrast Exam date and time: 12/15/2024 10:07 AM Age: 69 years old Clinical indication: Other: Recent surgery, dx of hcc, dyspnea, hypoxia; Prior surgery; Surgery date: 3-7 days post-operative; Surgery type: PT states it was gallbladder SX TECHNIQUE: Imaging protocol: Computed tomography of the abdomen and pelvis with contrast. 3D rendering (Not supervised by radiologist): MIP and/or 3D reconstructed images were created by the technologist. Radiation optimization: All CT scans at this facility use at least one of these dose optimization techniques: automated exposure control; mA and/or kV adjustment per patient size (includes targeted exams where dose is matched to clinical indication); or iterative reconstruction. Contrast material: ISOVUE; Contrast volume: 70 ml; Contrast route: IV; COMPARISON: CT ABDOMEN W CON 09/16/2024 1:43 PM FINDINGS: Tubes, catheters and devices: There are multiple surgical drainage catheters in the subhepatic space. There is no abscess or fluid collection at this location. Lungs: There are few pulmonary nodules at the lung bases measuring up to 1.2 cm increased in size and number from prior study concerning for pulmonary metastasis. There is mild subsegmental atelectasis at the right lung base. Liver: Liver has a cirrhotic contour. There is a 7 cm isodense liver mass situated centrally in the right lobe more apparent on the current study as well as indistinct nodularity throughout the liver parenchyma raising concern for possibility of hepatocellular carcinoma and liver metastasis and needs further evaluation. Gallbladder and biliary ducts: Gallbladder has been removed. There is a small nonspecific fluid collection in the gallbladder fossa. Bile ducts are not dilated. Pancreas: Unremarkable. Main pancreatic duct is not significantly dilated. Unremarkable. Main pancreatic duct is not significantly dilated. Spleen: Normal. No splenomegaly. Adrenal glands: Normal. No mass. Kidneys and ureters: Small bilateral renal cysts unchanged otherwise kidneys unremarkable. Stomach and bowel: Unremarkable. No obstruction. No mucosal thickening. Appendix: No evidence of appendicitis. Intraperitoneal space: Small amount of free intraperitoneal air in the upper abdomen presumably related to the recent surgery. There is a small amount of ascites adjacent to the liver margin and within the pelvis. Vasculature: Unremarkable. No abdominal aortic aneurysm. Lymph nodes: Unremarkable. No enlarged lymph nodes. Urinary bladder: Unremarkable as visualized. Reproductive: Unremarkable as visualized. Bones/joints: There are scattered small radiolucent bone lesions throughout the visualized portion of the spine relatively unchanged, nonspecific. There are mild degenerative changes lower lumbar spine, stable. No acute bony abnormalities. Soft tissues: Unremarkable. IMPRESSION: 1. Multiple pulmonary nodules at the lung bases increased in size and number from previous exam concerning for pulmonary metastasis. Recommend a dedicated CT exam of the chest for further assessment. 2. Cirrhosis with 7 cm liver mass and diffuse nodularity/heterogeneity throughout the liver parenchyma raising concern for multifocal hepatocellular carcinoma. Recommend contrast-enhanced MRI exam of the liver for further assessment. 3. Recent cholecystectomy with small nonspecific postop fluid collection in the gallbladder fossa. 4. Small amount of free intraperitoneal air presumed secondary to the recent surgery. Follow-up as clinically indicated. 5. Small amount of ascites in the abdomen and pelvis and may be secondary to patient's cirrhosis. 6. Few small radiolucent bone lesions within the spine relatively stable but nonspecific. Can not exclude bone metastasis. Consider nonemergent MRI examination of the thoracic and lumbar spine for further evaluation.
--- NOTE | 2024-12-15 09:22 | ED_ITS ---
Discharge Plan Disposition Chief Complaint: Shortness of Breath/Dyspnea Prescriptions Prescriptions: No Action lactulose 10 gram/15 mL solution 10 g PO DAILY tramadol 50 mg tablet 50 mg PO Q8H PRN (Reason: Moderate Pain (Scale Score 5-6)) acetaminophen 650 mg tablet extended release 650 mg PO Q6HP PRN (Reason: MILD PAIN AND FEVER) propranolol 10 mg tablet 10 mg PO BID trazodone 150 mg tablet 150 mg PO HS [id number]-[id number]-FA-vit K-lut 4 mg iron-200 mcg-25 mcg tablet 1 tab PO DAILY ondansetron HCl 4 mg tablet 4 mg PO Q6HP PRN (Reason: Nausea) cetirizine 5 mg Tablet 5 mg PO HS lisinopril 20 mg Tablet 20 mg PO DAILY pantoprazole 40 mg Tablet,Delayed Release (Dr/Ec) 40 mg PO HS buspirone 7.5 mg Tablet 7.5 mg PO BID escitalopram oxalate 10 mg Tablet 10 mg PO HS cholecalciferol (vitamin D3) 50 mcg (2,000 unit) Capsule 50 mcg PO DAILY Systane Balance 0.6 % Drops 1 drp OPHTHALMIC (EYE) QID PRN (Reason: Dry Eyes) hydrocodone-acetaminophen 5-325 mg tablet 1 tab PO Q6H PRN (Reason: post-op pain) Qty: 17 0RF Referrals Follow up/Referrals: Suraj Carter MD [Primary Care Provider] - See instructions Print Language Print Language: Citizen Of [place] Discharge ED Provider: Eduardo Espana HPI General Chief Complaint: Shortness of Breath/Dyspnea Stated Complaint: difficulty breathing Time Seen by Provider: 12/15/24 09:06 Mode of Arrival: EMS Source of Information: Patient and EMS Description of Symptoms (Recalled from ER Triage Doc. by RN): Pt from [facility], c/o [facility] facility reports 86% on RA, pt does not wear O2 daily. Duo Neb given prior to arrival pt is 94% on arrival. Pt had recent emilio/liver biopsy. 2 MC present with serous fluid and clot. MC site crusted, tender with yellow drainage. Pt complains of abdominal pain, tender to touch. 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 Was discharged on the ninth of this month also had a lesion on his liver that was being followed for possible parasellar carcinoma and had a biopsy of that lesion which unfortunately was resulted as moderately differentiated hepatocellular carcinoma. He has not been made aware of this from a historical standpoint yet. Patient's call to EMS today was for dyspnea. According to EMS his oxygen saturations were 74% prior to their arrival was around 90% by the time they arrived and was placed on oxygen. Patient states he feels much better but is still dyspneic. Also complains of 7 out of 10 diffuse abdominal pain. No fevers or chills to his knowledge. He is currently staying at senior living. Related Data Home Medications ?Medication ?Instructions ?Recorded ?Confirmed buspirone 7.5 mg tablet 7.5 mg PO BID 05/28/24 12/05/24 cetirizine 5 mg tablet 5 mg PO HS 05/28/24 12/05/24 cholecalciferol (vitamin D3) 50 50 mcg PO DAILY 05/28/24 12/05/24 mcg (2,000 unit) capsule escitalopram oxalate 10 mg tablet 10 mg PO HS 05/28/24 12/05/24 lisinopril 20 mg tablet 20 mg PO DAILY 05/28/24 12/05/24 pantoprazole 40 mg tablet,delayed 40 mg PO HS 05/28/24 12/05/24 release propylene glycol 0.6 % eye drops 1 drp ophthalmic (eye) QID PRN Dry 05/28/24 12/05/24 (Systane Balance) Eyes lactulose 10 gram/15 mL oral 10 g PO DAILY 10/21/24 12/05/24 solution acetaminophen 650 mg 650 mg PO Q6HP PRN MILD PAIN AND 12/02/24 12/05/24 tablet,extended release FEVER olaxxvyf-gfg-mwnp 4 mg-folic acid 1 tab PO DAILY 12/02/24 12/05/24 200 mcg-vit K 25 mcg-lutein tablet ondansetron HCl 4 mg tablet 4 mg PO Q6HP PRN Nausea 12/02/24 12/05/24 propranolol 10 mg tablet 10 mg PO BID 12/02/24 12/05/24 tramadol 50 mg tablet 50 mg PO Q8H PRN Moderate Pain 12/02/24 12/05/24 (Scale Score 5-6) trazodone 150 mg tablet 150 mg PO HS 12/02/24 12/05/24 Previous Rx's ?Medication ?Instructions ?Recorded hydrocodone 5 mg-acetaminophen 325 1 tab PO Q6H PRN post-op pain #17 12/05/24 mg tablet tabs Allergies Allergy/AdvReac Type Severity Reaction Status Date / Time No Known Allergies Allergy Verified 12/02/24 10:41 [facility] Disclaimer: The information contained in this section may have been updated after the patient was seen, as this information can be updated by other users. Medical History (Updated 12/07/24 @ 00:00 by Priya Restrepo) Calculus of gallbladder without cholecystitis without obstruction Chest pain Abnormal electrocardiogram [ECG] [EKG] Hypertension Diverticulitis Cirrhosis of liver Hyperlipidemia Cerebral infarction Spondylosis Inguinal hernia Chronic pain Depression Hypercholesteremia GERD (gastroesophageal reflux disease) Surgical History H/O colonoscopy Previous back surgery Family History Other Family history of diabetes mellitus Social History (Updated 12/05/24 @ 14:09 by Alissa Meyer RN) Smoking Status: Former smoker alcohol intake: former substance use type: denies use current occupational status: disabled Travel in the last 8 weeks?: None adopted: No caregiver/support person: No foster care: No household members: other housing: senior living lives independently: No marital status: caffeine: No Have you lived/traveled outside US in past 30 days?: No Contact w/someone who lives/traveled outside US past 30 days?: No Exposure to someone with infectious disease in past 14 days?: No Do you have a fever (greater than 100.4 F or 38 C)?: No Have you tested positive for COVID-19?: No Exposed to someone with COVID-19 in past 14 days?: No Do you have a sore throat?: No Do you have a cough?: No Do you have any weakness?: No Do you have any diarrhea?: No Are you experiencing any unusual bleeding?: No Do you have any muscle aches/pain?: No Do you have any abdominal pain?: No Are you experiencing loss of taste or smell?: No Other Medical History Have you received the Flu Vaccine for this season: No Have you received the Pneumonia Vaccine: No ROS Obtained: Yes All systems reviewed & no additional complaints except as documented Physical Exam General General appearance: alert and in no apparent distress Comment: Oxygen saturations in the mid 90s on nasal cannula Respiratory Respiratory exam: Present normal lung sounds bilaterally; Absent respiratory distress Cardiovascular Cardiovascular exam: Present regular rate; Absent normal rhythm Abdominal Exam Abdominal exam: Present soft and tenderness (Diffusely tender MC drains in place draining serosanguineous fluid); Absent distention Neurological Exam Neurological exam: Present alert and oriented X3 HEART Score HEART Score HEART Score assessment performed?: Yes History (anamnesis): Slightly suspicious ECG: Non-specific disturbance Age: >65 years Risk factors: 1-2 risk factors Troponin: </= normal limit HEART Score: 4 Critical Care Critical Care Time Critical Care Time: No Medical Decision Making Pablo Inquiry Pt receiving controlled substance: No Vital Signs Vital Signs: 12/15/24 08:53 12/15/24 09:00 12/15/24 09:30 Temperature 98 F Temperature Source Oral Pulse Rate 71 87 Pulse Rate [Left] 77 Respiratory Rate 19 23 18 Blood Pressure 106/71 L 106/77 L Blood Pressure [Right Arm] 106/71 L Blood Pressure Mean [Right Arm] 82 Blood Pressure Source [Right Arm] Automatic Cuff Blood Pressure Position [Right Arm] Sitting 02 Sat by Pulse Oximetry 94 L 94 L 85 L Oxygen Delivery Method Room Air Room Air 12/15/24 10:30 12/15/24 11:00 12/15/24 11:30 Temperature Temperature Source Pulse Rate 74 73 65 Pulse Rate [Left] Respiratory Rate 17 17 16 Blood Pressure 134/80 123/73 116/70 Blood Pressure [Right Arm] Blood Pressure Mean [Right Arm] Blood Pressure Source [Right Arm] Blood Pressure Position [Right Arm] 02 Sat by Pulse Oximetry 94 L 95 95 Oxygen Delivery Method Room Air Room Air Room Air 12/15/24 12:00 12/15/24 12:30 Temperature Temperature Source Pulse Rate 67 71 Pulse Rate [Left] Respiratory Rate 14 13 Blood Pressure 118/69 116/66 Blood Pressure [Right Arm] Blood Pressure Mean [Right Arm] Blood Pressure Source [Right Arm] Blood Pressure Position [Right Arm] 02 Sat by Pulse Oximetry 95 95 Oxygen Delivery Method Room Air Room Air Lab Data Lab results reviewed: Yes I reviewed the patient's lab results. Labs: Lab Results 12/15/24 08:45: WBC 9.0, RBC 4.38 L, Hgb 13.1 L, Hct 40.1 L, MCV 91.6, MCH 29.9, MCHC 32.7, RDW 18.6 H, Plt Count 331, MPV 13.2 H, Neut % (Auto) 74.5, Lymph % (Auto) 13.3, [place] % (Auto) 10.7 H, Eos % (Auto) 0.8, Baso % (Auto) 0.1, Neut # (Auto) 6.7, Lymph # (Auto) 1.2, [place] # (Auto) 1.0, Eos # (Auto) 0.1, Baso # (Auto) 0.0, Sodium 137, Potassium 5.1, Chloride 108 H, Carbon Dioxide 22, Anion Gap 12.1, BUN 31 H, Creatinine 1.90 H, Estimated Creat Clear 40, Estimated GFR 35 L, Est GFR ( Amer) 43 L, Glucose 123 H, Calcium 9.2, Total Bilirubin 1.3, AST 482 H*, ALT 87 H, Alkaline Phosphatase 739 H, Troponin I < 0.01, N T-Pro-B Natriuret Pep 399 H, Total Protein 6.8, Albumin 3.0 L, Globulin 3.8 H, A lbumin/Globulin Ratio 0.8 L, Lipase 41 12/15/24 09:34: VBG pH 7.30 L, VBG pCO2 45.4, VBG pO2 31.5, VBG HCO3 21.8 L, VBG Total CO2 23.2, VBG O2 Saturation 56.3, VBG Base Excess -4.6 L, VBG Lactic Acid 2.6 H 12/15/24 11:00: Ammonia < 9 L 12/15/24 08:45 12/15/24 08:45 Response Orders (Tests/Meds): ED MEDICATIONS Discontinued Medications Generic Name Dose Route Start Last Admin Trade Name Freq PRN Reason Stop Dose Admin Sodium Chloride 500 mls @ 999 mls/hr 12/15/24 09:18 12/15/24 11:08 Sod Chlor 0.9% 1000ml Bag IV 12/15/24 09:48 999 mls/hr .Q31M ONE Administration Iopamidol 70 ml 12/15/24 10:14 12/15/24 10:15 Iopamidol-370 (76%);100ml Bottle IV 12/15/24 10:15 70 ml ONCE ONE Administration Sodium Chloride 10 ml 12/15/24 10:14 12/15/24 10:14 Sodium Chloride 0.9% 10ml Syr (Rad Only) IV 12/15/24 10:15 10 ml ONCE ONE Administration Sodium Chloride 50 ml 12/15/24 10:14 12/15/24 10:14 0.9 % Sodium Chloride 50 Ml Vial IV 12/15/24 10:15 50 ml ONCE ONE Administration ORDERS Category Date Time Status CT abdomen pelvis w con Stat Cat Scan 12/15/24 09:[address] angio chest PE protocol Stat Cat Scan 12/15/24 09:19 Completed Ammonia Stat Lab 12/15/24 11:00 Completed BNP [NT Pro Brain Natriuretic Pep.] Stat Lab 12/15/24 08:45 Completed CBC w/Auto Diff [Complete Blood Count Auto Diff] Stat Lab 12/15/24 08:45 Completed CMP [Comprehensive Metabolic Panel] Stat Lab 12/15/24 08:45 Completed Lipase Stat Lab 12/15/24 08:45 Completed Trop I [Troponin I] Stat Lab 12/15/24 08:45 Completed Troponin I Q3H Lab 12/15/24 15:30 Ordered Venous Blood Gas Stat RT 12/15/24 09:34 Completed MDM Narrative Medical Decision Narrative: 69-year-old presenting today with dyspnea and hypoxic respiratory failure with above history and physical concerning for many things including intra-abdominal infection, heart failure, pneumonia, pulmonary embolism etc. I did make the patient aware of his biopsy results showing hepatocellular carcinoma. He took the news very well and states that he has been made aware that this was a concern by his primary care doctor within the last year. This has not been staged or treated. I will get a CT scan of the patient's abdomen pelvis to rule out any intra-abdominal emergency associated with his recent surgery but also CT scan of his chest to further differentiate the above differential. Reassessment 1:[address] scans performed which I personally interpreted shows no explanation to patient's dyspnea there are some pulmonary nodules concerning for metastatic disease also patient has a 7 cm mass at this point and with confirm hepatocellular carcinoma this is highly concerning for metastatic papillary carcinoma. Postoperative changes seen on CT scan nothing otherwise acute. Patient has a mild worsening of his chronic renal insufficiency with a creatinine of 1.9 but his baseline is 1.4. Patient remains at his baseline clinically after talking to his primary care doctor who oversees his care at the senior living which is Dr. Willard. At this point with patient having decompensated cirrhosis and metastatic hepatocellular carcinoma very poor prognosis and patient likely needs to be untied of care and hospice and this will be managed further by Dr. Willard who I called and made aware of this and the patient's findings. No indication definitively of inpatient admission patient has been on room air the entire time actually I thought he was initially on nasal cannula but he is up actually been on nasal cannula with normal oxygen saturations in the mid 90s the entire tube and see ED stay. No evidence of hypoxemia. Nor any explanation for patient's subjective dyspnea. Patient was discharged in a stable condition but he is chronically ill as stated above and his team at the senior living will care for him further beyond this.
[2024-12-15 09:31] LABS: Chloride 108 mmol/L (98-107); Potassium 5.1 mmoL/L (3.5-5.1); Sodium 137 mmol/L (136-145)
[2024-12-15 09:32] LABS: Basophils % 0.1 % (0.1-2.0); Eosinophils # 0.1 Kmm3 (0.0-0.4); Eosinophils % 0.8 % (0.1-12.0); Hematocrit 40.1 % (42.0-52.0); Hemoglobin 13.1 g/dL (14.1-18.0); Immature Granulocytes # 0.05 10^3uL; Immature Granulocytes % 0.6 %; Lymphocytes # 1.2 K/mm3 (0.7-4.5); Lymphocytes % 13.3 % (10-50); Mean Corpuscular HGB Conc 32.7 g/dL (31.8-35.4); Mean Corpuscular Hemoglobin 29.9 pg (27.0-31.2); Mean Corpuscular Volume 91.6 fl (80-94); Mean Platelet Volume 13.2 fl (7.4-10.4); Monocytes % 10.7 % (1.7-9.3); Neutrophils # 6.7 K/mm3 (1.8-7.8); Neutrophils % 74.5 % (37.0-80.0); Nucleated Red Blood Cells # 0 10^3/uL; Nucleated Red Blood Cells % 0 %; Platelet Count 331 K/mm3 (142-424); Red Blood Count 4.38 M/mm3 (4.60-6.20); Red Cell Distribution Width 18.6 % (11.5-17.5); Red Cell Distribution Width-SD 61.4 fL
[2024-12-15 09:34] LABS: Alanine Aminotransferase 87 U/L (12-78); Albumin/Globulin Ratio 0.8 (1.1-1.8); Alkaline Phosphatase 739 U/L (38-126); Anion Gap 12.1 mEq/L (5-15); Aspartate Amino Transferase 482 U/L (17-59); Bilirubin,Total 1.3 mg/dl (0.2-1.3); Blood Urea Nitrogen 31 mg/dl (9-20); Carbon Dioxide 22 mmol/L (22.0-30.0); Creatinine Clearance Estimated 40 mL/min (50-200); Estimated Glomerular Filt Rate 35 ml/min (>60); GFR (African American) 43 ML/MIN (>60); Globulin 3.8 g/dL (1.3-3.2); Glucose 123 mg/dl (74-100); Lipase 41 U/L (23-300); Total Protein,Serum 6.8 g/dl (6.3-8.2)
[2024-12-15 09:35] LABS: Calcium 9.2 mg/dl (8.4-10.2)
[2024-12-15 09:42] LABS: VBG Base Excess -4.6 mmol/L (-2.4-2.3); VBG HCO3 21.8 mmol/L (23-30); VBG Oxygen Saturation 56.3 % (50-70); VBG PCO2 45.4 mmol/L (35-51); VBG PO2 31.5 mmol/L (28-40); VBG Total CO2 23.2 mmol/L (23-27)
[2024-12-15 09:44] LABS: NT Pro Brain Natriuretic Pep. 399 pg/mL (0-125)
[2024-12-15 09:44] LABS: Lactate Venous 2.6 mmol/L (0.4-2.0)
[2024-12-15 09:49] LABS: Troponin I < 0.01 ng/ml (0.00-0.034)
--- NOTE | 2024-12-15 10:04 | PC.NURSE ---
pt is in CT scan
[2024-12-15] MEDS: SODIUM CHLORIDE 0.9% 10ML SYR (RAD ONLY) 10 ML IV (10:14)
[2024-12-15] MEDS: 0.9 % SODIUM CHLORIDE 50 ML VIAL IV (10:14)
[2024-12-15] MEDS: IOPAMIDOL-370 (76%);100ML BOTTLE 70 ML IV (10:15)
[2024-12-15] MEDS: 0.9 % SODIUM CHLORIDE 1000ML 500 ML 999 ML IV (11:08)
[2024-12-15 11:37] LABS: Ammonia < 9 umol/L (9-30)
[2024-12-15 13:44] LABS: Reflex Lactic Add Lactic Reflex
== END 2024-12-15 15:32 ==
PROVIDERS: Emergency Provider Student in an Organized Health Care Education/Training Program; PCP Family Medicine
DX: R09.02 Hypoxemia (principal); R91.8 Other nonspecific abnormal finding of lung field; C22.0 Liver cell carcinoma; K70.31 Alcoholic cirrhosis of liver with ascites; I10 Essential (primary) hypertension; E78.5 Hyperlipidemia, unspecified; Z87.891 Personal history of nicotine dependence; F10.11 Alcohol abuse, in remission
CPT/HCPCS: 71275; 74177; 80053; 82140; 82803; 83690; 83880; 84484; 85025; 93005; 99285; J7030; Q9967

== ENCOUNTER 2024-12-18 08:57 | Inpatient (IN) | payer MEDICARE, SELFPAY ==
[2024-12-18] VITALS (37 sets, daily range): BP systolic 71–125; BP diastolic 41–77; PULSE 57–80; RESP 8–67; TEMP 35.8–36.8; O2SAT 94–100; BMI 17.7; BMI 20.5
--- NOTE | 2024-12-18 08:59 | CT_ITS ---
FINAL REPORT TECHNIQUE: IV contrast enhanced exam This study was performed with techniques to keep radiation doses as low as reasonably achievable, (ALARA). Individualized dose reduction techniques using automated exposure control or adjustment of mA and/or kV according to the patient's size were employed. CLINICAL HISTORY: drains in place, sepsis COMPARISON: Report dated 12/15/2024, examination dated 09/16/2024 FINDINGS: CT ABDOMEN PELVIS WITH CONTRAST: Abdomen: There is partial collapse of the right lower lobe, with bibasilar pneumonia. The gallbladder is unremarkable. Liver has a cirrhotic appearance, with a hypodense mass in the central liver dome measuring up to 71 x 63 mm in size. The overall appearance is worrisome for hepatocellular carcinoma. No biliary ductal dilatation is present. The spleen, pancreas and adrenal glands are unremarkable. Trace ascites is present in the upper abdomen. Kidneys show no mass or obstruction. No bowel obstruction is seen. There is trace fluid present in the gallbladder fossa, the patient is postcholecystectomy. No surgical drains are seen on this examination, although the right abdominal wall reveals a tract for a prior drain, best seen on images #71 through 74. There is minimal free air in the corwin hepatis, probably related to prior surgery or the surgical drain tract. Pelvis: The appendix is not visualized. Pelvic bowel loops are unremarkable. No fluid collection or adenopathy is seen. The bladder is unremarkable in appearance. IMPRESSION: There is trace fluid present at the gallbladder fossa, and this patient is status post cholecystectomy, without biliary ductal dilatation. A cirrhotic liver is present with a hypodense mass in the central liver dome, as described, worrisome for hepatocellular carcinoma. Partial collapse of the right lower lobe, with bibasilar pneumonia. Reviewed, Interpreted and Dictated by Mirtha Aguilera MD Transcribed by Kathy Clemente Authenticated and [facility]
--- NOTE | 2024-12-18 09:00 | XR_ITS ---
FINAL REPORT CLINICAL HISTORY: sepsis, AMS FINDINGS: There is patchy density bilaterally in the lung bases, right greater than left suspicious for pneumonia. Small right effusion is identified. There is no pneumothorax. Mediastinum is unremarkable. Heart size is normal. IMPRESSION: Findings suspicious for right basilar pneumonia. Reviewed, Interpreted and Dictated by Mirtha Aguilera MD Transcribed by Izabela Neely Authenticated and [facility]
--- NOTE | 2024-12-18 09:10 | PC.NURSE ---
repiratory aware of vbg
[2024-12-18 09:15] LABS: VBG Base Excess -7.7 mmol/L (-2.4-2.3); VBG HCO3 19.2 mmol/L (23-30); VBG Oxygen Saturation 95.7 % (50-70); VBG PCO2 42.7 mmol/L (35-51); VBG PH 7.27 mmol/L (7.31-7.41); VBG PO2 88.5 mmol/L (28-40); VBG Total CO2 20.5 mmol/L (23-27)
[2024-12-18 09:17] LABS: Basophils % 0.1 % (0.1-2.0); Eosinophils # 0.2 Kmm3 (0.0-0.4); Eosinophils % 1.4 % (0.1-12.0); Hematocrit 32.5 % (42.0-52.0); Hemoglobin 10.8 g/dL (14.1-18.0); Immature Granulocytes # 0.07 10^3uL; Immature Granulocytes % 0.6 %; Lymphocytes # 0.9 K/mm3 (0.7-4.5); Lymphocytes % 8.3 % (10-50); Mean Corpuscular HGB Conc 33.2 g/dL (31.8-35.4); Mean Corpuscular Volume 90.3 fl (80-94); Mean Platelet Volume 12.3 fl (7.4-10.4); Monocytes # 1.3 K/mm3 (0.1-1.0); Monocytes % 12.3 % (1.7-9.3); Neutrophils # 8.4 K/mm3 (1.8-7.8); Neutrophils % 77.3 % (37.0-80.0); Nucleated Red Blood Cells # 0 10^3/uL; Nucleated Red Blood Cells % 0 %; Platelet Count 292 K/mm3 (142-424); Red Cell Distribution Width 18.3 % (11.5-17.5); Red Cell Distribution Width-SD 58.7 fL; White Blood Count 10.9 K/mm3 (4.8-10.8)
[2024-12-18 09:17] LABS: Lactate Venous 3.2 mmol/L (0.4-2.0)
[2024-12-18 09:21] LABS: Activated Partial Thrombo Time 32.4 seconds (22.8-30.6); INR 1.21 (0.9-1.1); Prothrombin Time 13.2 seconds (10.1-12.5)
--- NOTE | 2024-12-18 09:29 | PC.NURSE ---
Dr Weinstein was in this patients room removing the drains and the stitches at this time. Spoke with Dr Damico and he was good with him doing that
[2024-12-18 09:41] LABS: Lactic Acid 1.9 mmol/L (0.7-2.1)
--- NOTE | 2024-12-18 09:43 | ED_ITS ---
Discharge Plan Disposition Patient Disposition: Admitted Chief Complaint: Weakness Prescriptions Prescriptions: No Action lactulose 10 gram/15 mL solution 10 g PO DAILY tramadol 50 mg tablet 50 mg PO Q8H PRN (Reason: Moderate Pain (Scale Score 5-6)) acetaminophen 650 mg tablet extended release 650 mg PO Q6HP PRN (Reason: MILD PAIN AND FEVER) propranolol 10 mg tablet 10 mg PO BID trazodone 150 mg tablet 150 mg PO HS [id number]-FA-vit K-lut 4 mg iron-200 mcg-25 mcg tablet 1 tab PO DAILY ondansetron HCl 4 mg tablet 4 mg PO Q6HP PRN (Reason: Nausea) cetirizine 5 mg Tablet 5 mg PO HS lisinopril 20 mg Tablet 20 mg PO DAILY pantoprazole 40 mg Tablet,Delayed Release (Dr/Ec) 40 mg PO HS buspirone 7.5 mg Tablet 7.5 mg PO BID escitalopram oxalate 10 mg Tablet 10 mg PO HS cholecalciferol (vitamin D3) 50 mcg (2,000 unit) Capsule 50 mcg PO DAILY Systane Balance 0.6 % Drops 1 drp OPHTHALMIC (EYE) QID PRN (Reason: Dry Eyes) hydrocodone-acetaminophen 5-325 mg tablet 1 tab PO Q6H PRN (Reason: post-op pain) Qty: 17 0RF Referrals Follow up/Referrals: Provider,Referral, MD [Primary Care Provider] - See instructions Clinical Impressions Clinical Impression: Sepsis, Pneumonia Print Language Print Language: Danish Discharge ED Provider: Jamey Damico General Adult HPI General Chief complaint: Weakness Stated complaint: Weakness Time Seen by Provider: 12/18/24 08:59 Mode of Arrival: EMS Source of Information: EMS and Medical Record Description of Symptoms (Recalled from ER Triage Doc. 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 Consequentially, this preceding description of symptoms, which may include the patient's categorized chief complaint in the EMR, do not reflect my personal clinical impression, and the ultimate description of history of present illness and patient stated complaints should be deferred to this section of the note. Unless stated otherwise or congruent with this section of the note, additional signs, symptoms, or incongruence should be interpreted as inaccurate with my clinical impression. Related Data Home Medications ?Medication ?Instructions ?Recorded ?Confirmed buspirone 7.5 mg tablet 7.5 mg PO BID 05/28/24 12/05/24 cetirizine 5 mg tablet 5 mg PO HS 05/28/24 12/05/24 cholecalciferol (vitamin D3) 50 50 mcg PO DAILY 05/28/24 12/05/24 mcg (2,000 unit) capsule escitalopram oxalate 10 mg tablet 10 mg PO HS 05/28/24 12/05/24 lisinopril 20 mg tablet 20 mg PO DAILY 05/28/24 12/05/24 pantoprazole 40 mg tablet,delayed 40 mg PO HS 05/28/24 12/05/24 release propylene glycol 0.6 % eye drops 1 drp ophthalmic (eye) QID PRN Dry 05/28/24 12/05/24 (Systane Balance) Eyes lactulose 10 gram/15 mL oral 10 g PO DAILY 10/21/24 12/05/24 solution acetaminophen 650 mg 650 mg PO Q6HP PRN MILD PAIN AND 12/02/24 12/05/24 tablet,extended release FEVER [id number]-[id number] 4 mg-folic acid 1 tab PO DAILY 12/02/24 12/05/24 200 mcg-vit K 25 mcg-lutein tablet ondansetron HCl 4 mg tablet 4 mg PO Q6HP PRN Nausea 12/02/24 12/05/24 propranolol 10 mg tablet 10 mg PO BID 12/02/24 12/05/24 tramadol 50 mg tablet 50 mg PO Q8H PRN Moderate Pain 12/02/24 12/05/24 (Scale Score 5-6) trazodone 150 mg tablet 150 mg PO HS 12/02/24 12/05/24 Previous Rx's ?Medication ?Instructions ?Recorded hydrocodone 5 mg-acetaminophen 325 1 tab PO Q6H PRN post-op pain #17 12/05/24 mg tablet tabs Allergies Allergy/AdvReac Type Severity Reaction Status Date / Time No Known Allergies Allergy Verified 12/02/24 10:41 [facility] Disclaimer: The information contained in this section may have been updated after the patient was seen, as this information can be updated by other users. Medical History (Updated 12/18/24 @ 14:31 by Jamey Damico MD) Calculus of gallbladder without cholecystitis without obstruction Chest pain Abnormal electrocardiogram [ECG] [EKG] Hypertension Diverticulitis Cirrhosis of liver Hyperlipidemia Cerebral infarction Spondylosis Inguinal hernia Chronic pain Depression Hypercholesteremia GERD (gastroesophageal reflux disease) Surgical History H/O colonoscopy Previous back surgery Family History Other Family history of diabetes mellitus Social History (Updated 12/05/24 @ 14:09 by Alissa Meyer RN) Smoking Status: Never smoker alcohol intake: former substance use type: denies use current occupational status: disabled Travel in the last 8 weeks?: None adopted: No caregiver/support person: No foster care: No household members: other housing: skilled nursing lives independently: No marital status: caffeine: No Have you lived/traveled outside [place] in past 30 days?: No Contact w/someone who lives/traveled outside US past 30 days?: No Exposure to someone with infectious disease in past 14 days?: No Do you have a fever (greater than 100.4 F or 38 C)?: No Have you tested positive for COVID-19?: No Exposed to someone with COVID-19 in past 14 days?: No Do you have a sore throat?: No Do you have a cough?: No Do you have any weakness?: Yes Do you have any diarrhea?: No Are you experiencing any unusual bleeding?: No Do you have any muscle aches/pain?: No Do you have any abdominal pain?: No Are you experiencing loss of taste or smell?: No Other Medical History Have you received the Flu Vaccine for this season: No Have you received the Pneumonia Vaccine: No ROS Obtained: Yes All systems reviewed & no additional complaints except as documented Physical Exam General General appearance: lethargic Head Head exam: atraumatic and normocephalic Eye Eye exam: Present normal appearance, PERRL and EOMI ENT ENT exam: Present mucous membranes dry Neck Neck exam: Present normal inspection, full ROM and trachea midline Respiratory Respiratory exam: Absent respiratory distress, wheezes, stridor, accessory muscle use or prolonged expiratory phase Cardiovascular Cardiovascular exam: Present normal rhythm, tachycardia and other (Pulses equal symmetric in upper and lower extremities) Abdominal Exam Abdominal exam: Present soft, tenderness and guarding; Absent rebound, rigidity or pulsatile mass Abdominal tenderness: Present diffuse and moderate Extremities Exam Extremities exam: Absent edema Neurological Exam Neurological exam: Present alert and CN II-XII intact; Absent oriented X3 Skin Skin exam: Present warm and dry; Absent diaphoresis or erythema Medical Decision Making Medical Records Medical records reviewed: Yes I reviewed the patient's medical records. Screening: Per USPSTF and CDC recommendations, given the prevalence of disease in our region, it is our hospital?s policy to screen for HIV and viral Hepatitis for all patients aged 18 and over and those with ongoing risk factors. Pablo Inquiry Pt receiving controlled substance: No Pablo was queried for this patient: No Vital Signs: 12/18/24 09:00 12/18/24 09:02 12/18/24 09:30 Temperature 97.0 F L Temperature Source Rectal Pulse Rate 67 68 Pulse Rate [Left Radial] 70 Respiratory Rate 12 14 12 Blood Pressure 91/58 L 100/64 L Blood Pressure [Right Arm] 91/58 L Blood Pressure Mean [Right Arm] 69 02 Sat by Pulse Oximetry 98 99 98 Oxygen Delivery Method Nasal Cannula Nasal Cannula Nasal Cannula Oxygen Flow Rate (LPM) 2 2 2 12/18/24 10:00 12/18/24 10:30 12/18/24 10:45 Temperature Temperature Source Pulse Rate 64 60 65 Pulse Rate [Left Radial] Respiratory Rate 8 L 41 H Blood Pressure 83/51 L 82/49 L 82/49 L Blood Pressure [Right Arm] Blood Pressure Mean [Right Arm] 02 Sat by Pulse Oximetry 94 L 100 99 Oxygen Delivery Method Nasal Cannula Room Air Oxygen Flow Rate (LPM) 12/18/24 11:00 12/18/24 11:30 12/18/24 12:00 Temperature Temperature Source Pulse Rate 62 60 57 L Pulse Rate [Left Radial] Respiratory Rate 14 12 24 Blood Pressure 88/50 L 81/48 L 85/50 L Blood Pressure [Right Arm] Blood Pressure Mean [Right Arm] 02 Sat by Pulse Oximetry 100 100 100 Oxygen Delivery Method Nasal Cannula Nasal Cannula Nasal Cannula Oxygen Flow Rate (LPM) 2 2 12/18/24 12:30 12/18/24 13:16 12/18/24 13:30 Temperature Temperature Source Pulse Rate 63 76 74 Pulse Rate [Left Radial] Respiratory Rate 14 16 14 Blood Pressure 75/46 L 106/62 L 100/62 L Blood Pressure [Right Arm] Blood Pressure Mean [Right Arm] 02 Sat by Pulse Oximetry 99 100 98 Oxygen Delivery Method Nasal Cannula Nasal Cannula Nasal Cannula Oxygen Flow Rate (LPM) 12/18/24 14:00 Temperature Temperature Source Pulse Rate 65 Pulse Rate [Left Radial] Respiratory Rate 12 Blood Pressure 72/44 L Blood Pressure [Right Arm] Blood Pressure Mean [Right Arm] 02 Sat by Pulse Oximetry 99 Oxygen Delivery Method Nasal Cannula Oxygen Flow Rate (LPM) Lab Data Lab Results 12/18/24 08:56: WBC 10.9 H, RBC 3.60 L, Hgb 10.8 L, Hct 32.5 L, MCV 90.3, MCH 30.0, MCHC 33.2, RDW 18.3 H, Plt Count 292, MPV 12.3 H, Neut % (Auto) 77.3, L ymph % (Auto) 8.3 L, Nolan % (Auto) 12.3 H, Eos % (Auto) 1.4, Baso % (Auto) 0.1, Neut # (Auto) 8.4 H, Lymph # (Auto) 0.9, Nolan # (Auto) 1.3 H, Eos # (Auto) 0.2, Baso # (Auto) 0.0, PT 13.2 H, INR 1.21 H, APTT 32.4 H 12/18/24 09:00: Lactate 1.9 12/18/24 09:09: VBG pH 7.27 L, VBG pCO2 42.7, VBG pO2 88.5 H, VBG HCO3 19.2 L, V BG Total CO2 20.5 L, VBG O2 Saturation 95.7 H, VBG Base Excess -7.7 L, VBG Lactic Acid 3.2 H 12/18/24 09:40: Sodium 134 L, Potassium 4.8, Chloride 107, Carbon Dioxide 21 L, Anion Gap 10.8, BUN 51 H, Creatinine 3.40 H, Estimated Creat Clear 16, Estimated GFR 18 L*, Est GFR ( Amer) 22 L, Glucose 104 H, Calcium 8.2 L, Magnesium 2.0, Total Bilirubin 1.1, AST 348 H*, ALT 64, Alkaline Phosphatase 548 H, Troponin I < 0.01, Total Protein 5.9 L, Albumin 2.5 L, Globulin 3.4 H, A lbumin/Globulin Ratio 0.7 L, TSH 4.02, Thyroxine (T4) 19.6 H 12/18/24 08:56 12/18/24 09:40 Orders (Tests/Meds): ED MEDICATIONS Generic Name Dose Route Start Last Admin Trade Name Freq PRN Reason Stop Dose Admin Norepinephrine/Dextrose 8 mg in 250 mls @ 3.75 mls/hr 12/18/24 14:27 Levophed 8mg/250ml-D5w Premix IV 01/17/25 14:26 .Q24H EZ Protocol 2 MCG/MIN Discontinued Medications Generic Name Dose Route Start Last Admin Trade Name Freq PRN Reason Stop Dose Admin Piperacillin Sod/Tazobactam 100 mls @ 200 mls/hr 12/18/24 08:59 12/18/24 10:20 Sod 4.5 gm/ Sodium Chloride IV 12/18/24 09:28 200 mls/hr ONCE ONE Administration Sodium Chloride 2,310 mls @ 1,155 mls/hr 12/18/24 08:59 12/18/24 10:21 Sod Chlor 0.9% 1000ml Bag 30 ml/kg infuse over 2 hr (2310 ml) 12/18/24 10:58 1,155 mls/hr IV Administration .Q2H ONE Vancomycin/PEG/NADA/Lysine/Water 1.5 gm in 300 mls @ 150 mls/hr 12/18/24 09:15 12/18/24 10:28 Vancomycin 1.5gm/300ml (Peg) Premix IV 12/18/24 11:14 150 mls/hr ONCE ONE Administration Iopamidol 75 ml 12/18/24 13:13 12/18/24 13:14 Iopamidol-370 (76%);100ml Bottle IV 12/18/24 13:14 75 ml ONCE ONE Administration Ketorolac Tromethamine 15 mg 12/18/24 09:49 12/18/24 10:21 Ketorolac 30mg/Ml Vial IV 12/18/24 09:50 15 mg ONCE ONE Administration Miscellaneous 1 each 12/18/24 09:00 12/18/24 10:27 Vancomycin Consult Request NOTAPPLIC 01/17/25 08:59 1 each CONSULT PHARMACY EZ Administration Morphine Sulfate 4 mg 12/18/24 09:49 12/18/24 10:27 Morphine 4mg/Ml Syringe IV 12/18/24 09:50 Not Given ONCE ONE Ondansetron HCl 4 mg 12/18/24 09:49 12/18/24 10:20 Ondansetron 4mg/2ml Vial IV 12/18/24 09:50 4 mg ONCE ONE Administration Sodium Chloride 10 ml 12/18/24 13:13 12/18/24 13:14 Sodium Chloride 0.9% 10ml Syr (Rad Only) IV 12/18/24 13:14 10 ml ONCE ONE Administration ORDERS Category Date Time Status CT abdomen pelvis w con Stat Cat Scan 12/18/24 08:59 Completed Care Management Consult [Consult to Case Management] [ Cons 12/18/24 12:12 Active CONS] Routine XR chest portable Stat Exams 12/18/24 09:00 Completed Complete Blood Count Auto Diff Stat Lab 12/18/24 08:56 Completed Comprehensive Metabolic Panel Stat Lab 12/18/24 09:40 Completed Lactic Acid Stat Lab 12/18/24 09:00 Completed Magnesium Stat Lab 12/18/24 09:40 Completed PT INR [Prothrombin Time INR] Stat Lab 12/18/24 08:56 Completed PTT [Activated Partial Thrombo Time] Stat Lab 12/18/24 08:56 Completed T4 (Thyroxine) Stat Lab 12/18/24 09:40 Completed TSH [Thyroid Stimulating Hormone] Stat Lab 12/18/24 09:40 Completed Troponin I Stat Lab 12/18/24 09:40 Completed Urinalysis and Microscopic Stat Lab 12/18/24 09:00 Ordered Blood Culture Stat Micro 12/18/24 09:05 Received Venous Blood Gas Stat RT 12/18/24 09:09 Completed Medical Decision Narrative: 69-year-old male presenting with abdominal pain, concern for sepsis. Patient had drains put in his abdomen a couple weeks prior to this with surgery December 05, 2024 had laparoscopic cholecystectomy and drains were placed. Since that time, staying at nursing facility. Patient brought in today by EMS for decreased responsiveness and weakness. Patient was supposed to have appointment today with surgery to have the drains taken out and was supposed to meet with hospice as well today, 12/18, but unable to get him up, ready for the day, etc., so brought into the emergency department with EMS. History was obtained via conversation with patient and EMS. On arrival, patient hemodynamically stable, alert, GCS 14, moving all extremities spontaneously, pupils equal and reactive to light. Full physical exam performed and significant for clinically ill- appearing male who is in mild distress secondary to pain. GCS 14, answering questions, but not alert and oriented. Abdomen is soft, nondistended, but diffusely and moderately tender with drains in place with incisions clean, dry, intact. Differential includes intra-abdominal sepsis, drain failure, perforation, bacteremia, dehydration, metabolic abnormality, among others. Patient placed on continuous cardiac monitoring and continuous pulse ox with initial blood pressure 91/58, heart rate 80, saturation 99% on 2 L nasal cannula. Patient was given sepsis fluid bolus, vancomycin, Zosyn, Toradol, Zofran, morphine for symptomatic management and correction of underlying abnormalities. Workup independently interpreted and significant for leukocytosis of 10.9, hemoglobin 10.8, platelets normal at 292. Patient's coags with INR 1.2 and PTT 32. VBG metabolic acidosis with a pH 7.27/CO2 42/bicarb 19/lactate 3.2. Chemistry concerning for hyponatremia, OZZIE on CKD with creatinine 3.4 and AST elevated 348, seems to be downtrending as well as alkaline phosphatase 548. Troponin negative. Patient's CT scan of the abdomen and pelvis was obtained after drain removal with surgery. On independent interpretation, patient has right lower lobe pneumonia as well as potentially developing left lower lobe pneumonia. Liver cancer, but no other acute abnormalities. I contacted hospice consulted informally, agreeable to accept patient as hospice patient upon discharge when in stable condition. I contacted and consulted the hospitalist formally, patient to be admitted for care in the acute setting of sepsis secondary to pneumonia. Patient continues to be hypotensive and lethargic on tissue reperfusion survey within 3 hours, started on Levophed. I also talk to family about palliative versus hospice care. Agreeable to DNR/DNI and hospice on discharge. Because patient high risk for clinical decompensation, deemed appropriate for inpatient admission. Results were relayed to patient who voiced understanding and patient was agreeable to inpatient admission and management. Patient was admitted to the hospital for further definitive management. 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 Electronic agricultural extension educator of the spoken language may permit errors. Although I have reviewed the note, some errors may still exist. Critical Care Critical Care Time Critical Care Time: Yes (sepsis) Attestation: On 12/18/24, the high probability of a clinically significant, sudden or life threatening deterioration of the following system(s) required my full and direct attention, intervention and personal management. The time I documented below is in addition to time spent performing reported procedures but includes the following listed in this critical care notation. Total Time Total Critical Care Time: 45
[2024-12-18 09:46] LABS: T4 (Thyroxine) 19.6 ug/dl (5.53-11.0)
--- NOTE | 2024-12-18 10:11 | PC.NURSE ---
pt son at bedside and case management to call hospice and let them know he was here
[2024-12-18 10:19] LABS: Alanine Aminotransferase 64 U/L (12-78); Albumin Level 2.5 g/dl (3.5-5.0); Albumin/Globulin Ratio 0.7 (1.1-1.8); Alkaline Phosphatase 548 U/L (38-126); Anion Gap 10.8 mEq/L (5-15); Aspartate Amino Transferase 348 U/L (17-59); Bilirubin,Total 1.1 mg/dl (0.2-1.3); Blood Urea Nitrogen 51 mg/dl (9-20); Calcium 8.2 mg/dl (8.4-10.2); Carbon Dioxide 21 mmol/L (22.0-30.0); Chloride 107 mmol/L (98-107); Creatinine Clearance Estimated 16 mL/min (50-200); Estimated Glomerular Filt Rate 18 ml/min (>60); GFR (African American) 22 ML/MIN (>60); Globulin 3.4 g/dL (1.3-3.2); Glucose 104 mg/dl (74-100); Potassium 4.8 mmoL/L (3.5-5.1); Sodium 134 mmol/L (136-145); Total Protein,Serum 5.9 g/dl (6.3-8.2)
[2024-12-18] MEDS: ONDANSETRON 4MG/2ML VIAL 4 MG IV (10:20)
[2024-12-18] MEDS: PIPERACILLIN/TAZO 4.5 GM in 0.9 % SODIUM CHLORIDE 100 ML IV (10:20)
[2024-12-18] MEDS: KETOROLAC 30MG/ML VIAL 15 MG IV (10:21)
[2024-12-18] MEDS: SODIUM CHLORIDE 1155 ML IV (10:21)
[2024-12-18] MEDS: VANCOMYCIN CONSULT REQUEST 1 EACH NOTAPPLIC (10:27)
[2024-12-18] MEDS: VANCOMYCIN/WATER FOR INJ (PEG) 1.5 GM/300 ML PIGGYBACK IV (10:28)
[2024-12-18 10:32] LABS: Troponin I < 0.01 ng/ml (0.00-0.034)
--- NOTE | 2024-12-18 10:46 | HMH.ITSTN ---
spoke to Shruthi in ER regarding patient's labs for CT; To call us back with update.
[2024-12-18 10:49] LABS: Thyroid Stimulating Hormone 4.02 uIU/mL (0.465-4.68)
--- NOTE | 2024-12-18 12:17 | CARE MANAGER ---
Called and spoke with Donna with Hospice. Patient was planned for Hospice visit today @ 1300 at [facility], but Hospice will come here to see patient instead r/t decline in status.
--- NOTE | 2024-12-18 13:06 | PC.NURSE ---
pt son signed the DNR form and it was placed in patient chart, pt returning from ct scan awaiting hospice administrator eval
--- NOTE | 2024-12-18 13:12 | PC.NURSE ---
pt arrived back to room from ct
[2024-12-18] MEDS: SODIUM CHLORIDE 0.9% 10ML SYR (RAD ONLY) 10 ML IV (13:14)
[2024-12-18] MEDS: IOPAMIDOL-370 (76%);100ML BOTTLE 75 ML IV (13:14)
[2024-12-18 13:18] LABS: Reflex Lactic Add Lactic Reflex
--- NOTE | 2024-12-18 13:35 | PC.NURSE ---
hospice nurse at bedside with patient and son
--- NOTE | 2024-12-18 14:30 | PC.NURSE ---
placed hospice nurse note on patient chart
[2024-12-18] MEDS: NOREPINEPHRINE BITARTRATE/D5W 8 MG/250 ML PLAST..BAG 15 MG IV (14:37)
--- NOTE | 2024-12-18 14:37 | SW/DCPLANNER ---
Addendum entered by Tamiko Alex 12/19/24 11:32: I have updated Donna w/ Hospice and Joana w/ [facility] that patient will return today. Hospice will admit once he returns to [facility] today. Original Note: Patient currently resides at [facility] level of care. Anette w/ Hospice in ED to evaluate patient as well. Anette stated that patient will be admitted to Hospice services at [facility] once medically stable for discharge. I will continue to follow up w/ patient, family, , [facility] and Hospice.
--- NOTE | 2024-12-18 15:00 | PC.NURSE ---
called report to christi stephens in [place]
--- NOTE | 2024-12-18 15:30 | EXP.PHA.CONS ---
Pharmacy Consult Date: 12/18/24 Time: 15:33 Referring provider: DR WILKS Reason for Consult:: VANCOMYCIN DOSING CONSULT Allergies Allergy/AdvReac Type Severity Reaction Status Date / Time No Known Allergies Allergy Verified 12/02/24 10:41 Home Medications ?Medication ?Instructions ?Recorded ?Confirmed ?Type buspirone 7.5 mg tablet 7.5 mg PO BID 05/28/24 12/05/24 History cetirizine 5 mg tablet 5 mg PO HS 05/28/24 12/05/24 History cholecalciferol (vitamin D3) 50 50 mcg PO DAILY 05/28/24 12/05/24 History mcg (2,000 unit) capsule escitalopram oxalate 10 mg tablet 10 mg PO HS 05/28/24 12/05/24 History lisinopril 20 mg tablet 20 mg PO DAILY 05/28/24 12/05/24 History pantoprazole 40 mg tablet,delayed 40 mg PO HS 05/28/24 12/05/24 History release propylene glycol 0.6 % eye drops 1 drp ophthalmic (eye) QID PRN Dry 05/28/24 12/05/24 History (Systane Balance) Eyes lactulose 10 gram/15 mL oral 10 g PO DAILY 10/21/24 12/05/24 History solution acetaminophen 650 mg 650 mg PO Q6HP PRN MILD PAIN AND 12/02/24 12/05/24 History tablet,extended release FEVER [id number]-qbi-[id number] 4 mg-folic acid 1 tab PO DAILY 12/02/24 12/05/24 History 200 mcg-vit K 25 mcg-lutein tablet ondansetron HCl 4 mg tablet 4 mg PO Q6HP PRN Nausea 12/02/24 12/05/24 History propranolol 10 mg tablet 10 mg PO BID 12/02/24 12/05/24 History tramadol 50 mg tablet 50 mg PO Q8H PRN Moderate Pain 12/02/24 12/05/24 History (Scale Score 5-6) trazodone 150 mg tablet 150 mg PO HS 12/02/24 12/05/24 History hydrocodone 5 mg-acetaminophen 325 1 tab PO Q6H PRN post-op pain #17 12/05/24 Rx mg tablet tabs New Prescriptions to Start Prescriptions: Height: 1.75 m Weight: 54.431 kg Laboratory Results:: Laboratory Results - last 24 hr 12/18/24 08:56: WBC 10.9 H, RBC 3.60 L, Hgb 10.8 L, Hct 32.5 L, MCV 90.3, MCH 30.0, MCHC 33.2, RDW 18.3 H, Plt Count 292, MPV 12.3 H, Neut % (Auto) 77.3, Lymph % (Auto) 8.3 L, Overton % (Auto) 12.3 H, Eos % (Auto) 1.4, Baso % (Auto) 0.1, Neut # (Auto) 8.4 H, Lymph # (Auto) 0.9, Overton # (Auto) 1.3 H, Eos # (Auto) 0.2, Baso # (Auto) 0.0, PT 13.2 H, INR 1.21 H, APTT 32.4 H 12/18/24 09:00: Lactate 1.9 12/18/24 09:09: VBG pH 7.27 L, VBG pCO2 42.7, VBG pO2 88.5 H, VBG HCO3 19.2 L, VBG Total CO2 20.5 L, VBG O2 Saturation 95.7 H, VBG Base Excess -7.7 L, VBG Lactic Acid 3.2 H 12/18/24 09:40: Sodium 134 L, Potassium 4.8, Chloride 107, Carbon Dioxide 21 L, Anion Gap 10.8, BUN 51 H, Creatinine 3.40 H, Estimated Creat Clear 16, Estimated GFR 18 L*, Est GFR ( Amer) 22 L, Glucose 104 H, Calcium 8.2 L, Magnesium 2.0, Total Bilirubin 1.1, AST 348 H*, ALT 64, Alkaline Phosphatase 548 H, Troponin I < 0.01, Total Protein 5.9 L, Albumin 2.5 L, Globulin 3.4 H, Albumin/Globulin Ratio 0.7 L, TSH 4.02, Thyroxine (T4) 19.6 H Medical History: Medical History (Updated 12/18/24 @ 14:31 by Jamey Damico MD) Calculus of gallbladder without cholecystitis without obstruction Chest pain Abnormal electrocardiogram [ECG] [EKG] Hypertension Diverticulitis Cirrhosis of liver Hyperlipidemia Cerebral infarction Spondylosis Inguinal hernia Chronic pain Depression Hypercholesteremia GERD (gastroesophageal reflux disease) Assessment and Plan Assessment and plan all Dx Assessment and Plan for all problems:: Pharmacokinetic dosing service Objective: Age: 69 yo Serum creatinine: 3.4 mg/dL Height: 69.0 Inches Weight (kg): 54.431 Diagnosis: SEPSIS Assessment: IBW (kg): 70.70 Dosing wt(kg): 54.431 Estimated Creatinine clearance (ml/min): 15.8 CRCL method: Cockcroft and Gault using ibw(default). Drug selected: Vancomycin Loading dose (mg): 1500 MG Vd (liters): 38.1 (factor used: 0.7 L/kg) Alexi (hr-1): 0.018 Half life (hrs): 38.51 CLvanco=?? 0.686 L/hr Recommended dose: 750 mg Interval: 48 hrs Infusion time (hrs): 2.0 Predicted peak (mcg/mL): 33.4 Predicted trough (mcg/mL): 14.59 Total body weight is being used for vancomycin dosing. Recommendations: Give Vancomycin 750 mg q 48 hrs with an expected Cpeak of 33.4 mcg/ml and an expected Ctrough of 14.59 mcg/ml TO START 12/20/24 AT 10:30, PATIENT RECEIVED ONE TIME LOADING DOSE OF VANCOMYCIN 1500 MG IN THE ED 12/18/24 AT 10:28. AUC 0-24 /JERMAINE Data: JERMAINE 0.5 mcg/mL:?? AUC/JERMAINE:? 1093.3 JERMAINE 1.0 mcg/mL:?? AUC/JERMAINE:? 546.6 --------- JERMAINE 1.5 mcg/mL:?? AUC/JERMAINE:? 364.4 JERMAINE 2.0 mcg/mL:?? AUC/JERMAINE:? 273.3 Thank you for the consult
--- NOTE | 2024-12-18 16:11 | PC.NURSE ---
pt arrived to room 264 from ER via stretcher
[2024-12-18] MEDS: LACTATED RINGERS 1000ML 1,000 ML 75 ML IV (17:29)
--- NOTE | 2024-12-18 18:51 | EXP.HP ---
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 Also has an OZZIE creatinine 3.4 (baseline 1.4), WBC 10.9, and currently hypotensive requiring Levophed. Otherwise, patient endorses shortness of breath but no other acute concerns at this time. Case discussed with ED provider message was made to admit patient for palliative treatment of pneumonia with hypotension. [facility] Disclaimer: The information contained in this section may have been updated after the patient was seen, as this information can be updated by other users. Medical History (Updated 12/23/24 @ 00:00 by Priya Restrepo) Calculus of gallbladder without cholecystitis without obstruction Chest pain Abnormal electrocardiogram [ECG] [EKG] Hypertension Diverticulitis Cirrhosis of liver Hyperlipidemia Cerebral infarction Spondylosis Inguinal hernia Chronic pain Depression Hypercholesteremia GERD (gastroesophageal reflux disease) Surgical History H/O colonoscopy Previous back surgery Family History Other Family history of diabetes mellitus Social History (Updated 12/18/24 @ 16:27 by Sandra Dickinson RN) Smoking Status: Never smoker alcohol intake: former substance use type: denies use current occupational status: disabled Travel in the last 8 weeks?: None adopted: No caregiver/support person: No foster care: No household members: other housing: senior care lives independently: No marital status: caffeine: No Other Medical History Have you received the Flu Vaccine for this season: Yes Have you received the Pneumonia Vaccine: Yes Meds Home Medications and Allergies Home Medications ?Medication ?Instructions ?Recorded ?Confirmed ?Type buspirone 7.5 mg tablet 7.5 mg PO BID 05/28/24 12/18/24 History cetirizine 5 mg tablet 5 mg PO HS 05/28/24 12/18/24 History escitalopram oxalate 10 mg tablet 10 mg PO HS 05/28/24 12/18/24 History pantoprazole 40 mg tablet,delayed 40 mg PO HS 05/28/24 12/18/24 History release propylene glycol 0.6 % eye drops 1 drp ophthalmic (eye) QID PRN Dry 05/28/24 12/18/24 History (Systane Balance) Eyes [id number] 4 mg-folic acid 1 tab PO DAILY 12/02/24 12/18/24 History 200 mcg-vit K 25 mcg-lutein tablet ondansetron HCl 4 mg tablet 4 mg PO Q6HP PRN Nausea 12/02/24 12/18/24 History propranolol 10 mg tablet 10 mg PO BID 12/02/24 12/18/24 History trazodone 150 mg tablet 150 mg PO HS 12/02/24 12/18/24 History albuterol sulfate 0.63 mg/3 mL 0.63 mg inhalation Q4HP PRN 12/18/24 12/19/24 History solution for nebulization SHORTNESS OF AIR oxycodone 5 mg tablet 5 mg PO Q6H PRN Pain 12/18/24 12/18/24 History simethicone 125 mg chewable tablet 125 mg PO Q4H PRN bloating 12/18/24 12/18/24 History (Gas-X Extra Strength) levofloxacin 750 mg tablet 750 mg PO Q48H 5 days #3 tabs 12/19/24 Rx midodrine 5 mg tablet 2.5 mg (1/2 x 5 mg) PO BID 30 days 12/19/24 Rx #30 tabs oxycodone 5 mg tablet 5 mg PO BID 12/19/24 12/19/24 History New Prescriptions to Start Prescriptions: levoUsman Rivera midodrine Usman Gramajo Allergies Allergy/AdvReac Type Severity Reaction Status Date / Time Gadolinium-Containing Allergy Intermediate Other Verified 12/18/24 16:46 Contrast Medi hydralazine Allergy Unknown Other Verified 12/18/24 16:44 Exam Data for Last 24 hours Vital signs and Labs for Last 24 Hours: Temp Pulse Resp BP Pulse Ox O2 Del Method O2 Flow Rate 96.7 F L 71 16 85/58 L 98 Nasal Cannula 4 12/18/24 17:05 12/18/24 18:00 12/18/24 18:00 12/18/24 18:00 12/18/24 18:00 12/18/24 18:00 12/18/24 18:00 Laboratory Results - last 24 hr 12/18/24 08:56: WBC 10.9 H, RBC 3.60 L, Hgb 10.8 L, Hct 32.5 L, MCV 90.3, MCH 30.0, MCHC 33.2, RDW 18.3 H, Plt Count 292, MPV 12.3 H, Neut % (Auto) 77.3, Lymph % (Auto) 8.3 L, [place] % (Auto) 12.3 H, Eos % (Auto) 1.4, Baso % (Auto) 0.1, Neut # (Auto) 8.4 H, Lymph # (Auto) 0.9, [place] # (Auto) 1.3 H, Eos # (Auto) 0.2, Baso # (Auto) 0.0, PT 13.2 H, INR 1.21 H, APTT 32.4 H 12/18/24 09:00: Lactate 1.9 12/18/24 09:09: VBG pH 7.27 L, VBG pCO2 42.7, VBG pO2 88.5 H, VBG HCO3 19.2 L, VBG Total CO2 20.5 L, VBG O2 Saturation 95.7 H, VBG Base Excess -7.7 L, VBG Lactic Acid 3.2 H 12/18/24 09:40: Sodium 134 L, Potassium 4.8, Chloride 107, Carbon Dioxide 21 L, Anion Gap 10.8, BUN 51 H, Creatinine 3.40 H, Estimated Creat Clear 16, Estimated GFR 18 L*, Est GFR ( Amer) 22 L, Glucose 104 H, Calcium 8.2 L, Magnesium 2.0, Total Bilirubin 1.1, AST 348 H*, ALT 64, Alkaline Phosphatase 548 H, Troponin I < 0.01, Total Protein 5.9 L, Albumin 2.5 L, Globulin 3.4 H, Albumin/Globulin Ratio 0.7 L, TSH 4.02, Thyroxine (T4) 19.6 H I & O for Last 24 hours: Intake & Output 12/15/24 12/16/24 12/17/24 12/18/24 23:59 23:59 23:59 23:59 Intake Total Balance Weight 54.431 kg Constitutional Constitutional: no acute distress *Routine HEENT Exam Head: Present normocephalic Eye: Present EOMI and PERRL ENT: Present mucous membranes moist *Routine Neck Exam Neck: Present supple; Absent lymphadenopathy *Routine Respiratory Exam Respiratory: Present CTA bilaterally *Routine Cardiovascular Exam Cardiovascular: Present RRR *Routine Abdominal Exam Abdominal: Present soft, normoactive bowel sounds and tenderness *Routine Rectal Exam Rectal:: deferred *Routine Genitalia Exam Genitalia:: deferred *Routine Extremities Exam Extremities: Absent cyanosis, clubbing or edema *Routine Skin Exam Skin: Present warm; Absent rash *Routine Neurological Exam Neurological: Present alert and oriented X3 Assessment and Plan *Assessment and plan (1) HCC (hepatocellular carcinoma): Status: Acute Category: Medical Code(s): C22.0 - Liver cell carcinoma Plan Ford Butt is a 69-year-old male with a history of parasellar carcinoma considering hospice care who presented with progressive shortness of breath and was admitted for palliative pneumonia treatment. Also has an OZZIE creatinine 3.4 (baseline 1.4), WBC 10.9, and currently hypotensive requiring Levophed. Otherwise, patient endorses shortness of breath but no other acute concerns at this time. Case discussed with ED provider message was made to admit patient for palliative treatment of pneumonia with hypotension. #Community-acquired pneumonia #Hypotension ? CXR suggestive of RLL pneumonia. WBC 10.9. ? Ceftriaxone, doxycycline. Vancomycin, Zosyn given in the ED. ? Levophed for pressure support MAP greater than 65. ? Hypotension could also be sequelae of advanced liver cancer. Will consider midodrine in the morning. #OZZIE ? Initial creatinine 3.4, baseline around 1.4. Continue IV fluids, Levophed as above. #Hepatocellular carcinoma ? Hospice care consulted, can accept patient to home hospice when medically ready. #Anxiety/disruption ? Continue home escitalopram, buspirone, trazodone. #GERD ? Continue home PPI. Full code DVT prophylaxis: Lovenox 40 mg
[2024-12-18 19:03] LABS: Microscopic, Urine URINE MICROSCOPIC (MICROSCOPIC)
[2024-12-18 19:13] LABS: Blood, Urine Negative (Negative); Glucose,Urine (UA) Negative (Negative); Ketones,Urine Negative (Negative); Leukocyte Esterase,Urine Negative (Negative); Nitrate,Urine Negative (Negative); PH,Urine 5.5 (5.0-8.5); Protein,Urine Negative (Negative)
[2024-12-18 19:44] LABS: Appearance,Urine Slightly Cloudy (Clear); Bilirubin,Urine 1+ (Negative); Color,Urine Amber (Yellow)
[2024-12-18 19:52] LABS: Squamous Epithelial Cell,Urine Occasional #/hpf (0-5)
[2024-12-18 19:53] LABS: Bacteria,Urine 2+ /lpf
[2024-12-18] MEDS: ACETAMINOPHEN 325MG TAB 650 MG PO (21:02)
[2024-12-18] MEDS: DOXYCYCLINE HYCLATE 100 MG in 0.9 % SODIUM CHLORIDE 250 ML 166.667 MG IV (23:33)
[2024-12-18] MEDS: SODIUM CHLORIDE 3% 15ML NEB 3 ML IH (23:42)
[2024-12-19] VITALS (25 sets, daily range): BP systolic 87–116; BP diastolic 51–69; PULSE 72–90; RESP 12–25; TEMP 36.6–37; O2SAT 93–99; BMI 23.6
[2024-12-19 06:00] LABS: Basophils % 0.1 % (0.1-2.0); Eosinophils # 0.2 Kmm3 (0.0-0.4); Eosinophils % 2.1 % (0.1-12.0); Hematocrit 29.6 % (42.0-52.0); Hemoglobin 10.1 g/dL (14.1-18.0); Immature Granulocytes # 0.05 10^3uL; Immature Granulocytes % 0.6 %; Lymphocytes # 0.8 K/mm3 (0.7-4.5); Lymphocytes % 9.6 % (10-50); Mean Corpuscular HGB Conc 34.1 g/dL (31.8-35.4); Mean Corpuscular Hemoglobin 30.2 pg (27.0-31.2); Mean Corpuscular Volume 88.6 fl (80-94); Mean Platelet Volume 12.1 fl (7.4-10.4); Monocytes # 0.8 K/mm3 (0.1-1.0); Monocytes % 10.2 % (1.7-9.3); Neutrophils # 6.2 K/mm3 (1.8-7.8); Neutrophils % 77.4 % (37.0-80.0); Nucleated Red Blood Cells # 0 10^3/uL; Nucleated Red Blood Cells % 0 %; Platelet Count 258 K/mm3 (142-424); Red Blood Count 3.34 M/mm3 (4.60-6.20); Red Cell Distribution Width 17.8 % (11.5-17.5); Red Cell Distribution Width-SD 57.1 fL
[2024-12-19 06:02] LABS: Alanine Aminotransferase 60 U/L (12-78); Albumin Level 2.3 g/dl (3.5-5.0); Albumin/Globulin Ratio 0.7 (1.1-1.8); Alkaline Phosphatase 465 U/L (38-126); Anion Gap 11.3 mEq/L (5-15); Aspartate Amino Transferase 334 U/L (17-59); Bilirubin,Total 0.9 mg/dl (0.2-1.3); Blood Urea Nitrogen 46 mg/dl (9-20); Carbon Dioxide 19 mmol/L (22.0-30.0); Chloride 110 mmol/L (98-107); Creatinine Clearance Estimated 27 mL/min (50-200); Estimated Glomerular Filt Rate 25 ml/min (>60); GFR (African American) 30 ML/MIN (>60); Globulin 3.1 g/dL (1.3-3.2); Glucose 89 mg/dl (74-100); Magnesium 1.8 mg/dl (1.6-2.3); Potassium 4.3 mmoL/L (3.5-5.1); Sodium 136 mmol/L (136-145); Total Protein,Serum 5.4 g/dl (6.3-8.2)
[2024-12-19] MEDS: LACTATED RINGERS 1000ML 1,000 ML 75 ML IV (07:01)
--- NOTE | 2024-12-19 08:31 | P.CONPHA_ITS ---
Pharmacy Intervention Comments: HOME MEDICATION LIST VERIFIED USING LIST FROM [facility]
--- NOTE | 2024-12-19 08:31 | HMH.PHAINT1 ---
Pharmacy Intervention Comments: HOME MEDICATION LIST VERIFIED USING LIST FROM [facility]
[2024-12-19] MEDS: MIDODRINE HCL 5 MG TABLET 2.5 MG PO ×2 (08:47→12:43)
[2024-12-19] MEDS: ENOXAPARIN 30MG/0.3ML SYRINGE 30 MG SUBCUT (08:53)
[2024-12-19] MEDS: BUSPIRONE HCL 5 MG TABLET 7.5 MG PO (08:53)
[2024-12-19] MEDS: CEFTRIAXONE 1 GM 1 GM in 0.9 % SODIUM CHLORIDE 50 ML IV (08:54)
[2024-12-19] MEDS: OXYCODONE 5MG IMMEDIATE RELEASE TABLET 5 MG PO (08:54)
[2024-12-19] MEDS: DOXYCYCLINE HYCLATE 100 MG in 0.9 % SODIUM CHLORIDE 250 ML 166.667 MG IV (10:36)
--- NOTE | 2024-12-19 11:54 | EXP.DC.SUM ---
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 Hospital Course Hospital Course Hospital Course: Ford Butt is a 69-year-old male with a history of parasellar carcinoma considering hospice care who presented with progressive shortness of breath and was admitted for palliative pneumonia treatment. #Community-acquired pneumonia ? CXR suggestive of RLL pneumonia. Initial WBC 10.9, but no signs of sepsis. Initially hypotensive, but seems to be more related to hepatocellular carcinoma. ? Clinically improved with ceftriaxone, doxycycline. Vancomycin, Zosyn given in the ED. ? Levophed for pressure support MAP greater than 65, wean off. ? Discharged with levofloxacin for 5 more days. #Hepatocellular carcinoma #Hypotension ? Hospice care consulted, can accept patient to home hospice when medically ready. ? Initially hypotensive, may be related to advanced hepatocellular carcinoma. ? Started midodrine 2.5 mg twice daily. ? Continue home oxycodone. ? Family has decided to start hospice care, will be started upon arrival to [facility]. #Anxiety/disruption ? Continue home escitalopram, buspirone, trazodone. #GERD ? Continue home PPI. Total time spent on discharge: 32 minutes on chart review, counseling, documentation, and direct care with patient. Exam Data for Last 24 hours Vital signs and Labs for Last 24 Hours: Temp Pulse Resp BP Pulse Ox O2 Del Method O2 Flow Rate 97.8 F 81 22 110/61 99 Nasal Cannula 2 12/19/24 04:00 12/19/24 10:00 12/19/24 10:00 12/19/24 10:00 12/19/24 10:46 12/19/24 11:00 12/19/24 11:00 Laboratory Results - last 24 hr 12/18/24 18:38: Urine Color Elisa, Urine Appearance Slightly cloudy, Urine pH 5.5, Ur Specific [place] 1.020, Urine Protein Negative, Urine Glucose (UA) Negative, Urine Ketones Negative, Urine Blood Negative, Urine Nitrate Negative, Urine Bilirubin 1+ A, Urine Urobilinogen 1.0, Ur Leukocyte Esterase Negative, Urine RBC None, Urine WBC 3-5, Ur Squamous Epith Cells Occasional, Urine Bacteria 2+ 12/19/24 05:21: WBC 8.0 D, RBC 3.34 L, Hgb 10.1 L, Hct 29.6 L, MCV 88.6, MCH 30.2, MCHC 34.1, RDW 17.8 H, Plt Count 258, MPV 12.1 H, Neut % (Auto) 77.4, Lymph % (Auto) 9.6 L, [place] % (Auto) 10.2 H, Eos % (Auto) 2.1, Baso % (Auto) 0.1, Neut # (Auto) 6.2, Lymph # (Auto) 0.8, [place] # (Auto) 0.8, Eos # (Auto) 0.2, Baso # (Auto) 0.0, Sodium 136, Potassium 4.3, Chloride 110 H, Carbon Dioxide 19 L, Anion Gap 11.3, BUN 46 H, Creatinine 2.60 H D, Estimated Creat Clear 27, Estimated GFR 25 L, Est GFR ( Amer) 30 L D, Glucose 89, Calcium 8.0 L, Magnesium 1.8, Total Bilirubin 0.9, AST 334 H*, ALT 60, Alkaline Phosphatase 465 H, Total Protein 5.4 L, Albumin 2.3 L, Globulin 3.1, Albumin/Globulin Ratio 0.7 L I & O for Last 24 hours: Intake & Output 12/16/24 12/17/24 12/18/24 12/19/24 23:59 23:59 23:59 23:59 Intake Total 85.063 / 85.063 1437.132 / 1437.132 Output Total 300 / 600 650 / 650 Balance -214.937 / -514.937 787.132 / 787.132 Weight 54.431 kg 72.46 kg Microbiology Reports for the Last 24 Hours: Microbiology 12/18/24 09:05 Blood Blood Culture - Preliminary NO GROWTH AFTER 24 HOURS 12/18/24 09:00 Blood Blood Culture - Preliminary NO GROWTH AFTER 24 HOURS Constitutional Constitutional: no acute distress *Routine HEENT Exam Head: Present normocephalic Eye: Present EOMI and PERRL ENT: Present mucous membranes moist *Routine Neck Exam Neck: Present supple; Absent lymphadenopathy *Routine Respiratory Exam Respiratory: Present CTA bilaterally *Routine Cardiovascular Exam Cardiovascular: Present RRR *Routine Abdominal Exam Abdominal: Present soft, normoactive bowel sounds and tenderness *Routine Extremities Exam Extremities: Absent cyanosis, clubbing or edema *Routine Skin Exam Skin: Present warm; Absent rash *Routine Neurological Exam Neurological: Present alert and oriented X3 Results Data Completed and Pending Labs on day of discharge: Labs from last 24 hours 12/19/24 12/18/24 05:21 18:38 WBC 8.0 D RBC 3.34 L Hgb 10.1 L Hct 29.6 L MCV 88.6 MCH 30.2 MCHC 34.1 RDW 17.8 H Plt Count 258 MPV 12.1 H Neut % (Auto) 77.4 Lymph % (Auto) 9.6 L [place] % (Auto) 10.2 H Eos % (Auto) 2.1 Baso % (Auto) 0.1 Neut # (Auto) 6.2 Lymph # (Auto) 0.8 [place] # (Auto) 0.8 Eos # (Auto) 0.2 Baso # (Auto) 0.0 Sodium 136 Potassium 4.3 Chloride 110 H Carbon Dioxide 19 L Anion Gap 11.3 BUN 46 H Creatinine 2.60 H D Estimated Creat Clear 27 Estimated GFR 25 L Est GFR ( Amer) 30 L D Glucose 89 Calcium 8.0 L Magnesium 1.8 Total Bilirubin 0.9 AST 334 H* ALT 60 Alkaline Phosphatase 465 H Total Protein 5.4 L Albumin 2.3 L Globulin 3.1 Albumin/Globulin Ratio 0.7 L Urine Color Elisa Urine Appearance Slightly cloudy Urine pH 5.5 Ur Specific [place] 1.020 Urine Protein Negative Urine Glucose (UA) Negative Urine Ketones Negative Urine Blood Negative Urine Nitrate Negative Urine Bilirubin 1+ A Urine Urobilinogen 1.0 Ur Leukocyte Esterase Negative Urine RBC None Urine WBC 3-5 Ur Squamous Epith Cells Occasional Urine Bacteria 2+ Preliminary micro results at discharge 12/18/24 09:05 Blood Culture - Preliminary Blood NO GROWTH AFTER 24 HOURS 12/18/24 09:00 Blood Culture - Preliminary Blood NO GROWTH AFTER 24 HOURS Meds Home Medications and Allergies Home Medications ?Medication ?Instructions ?Recorded ?Confirmed ?Type buspirone 7.5 mg tablet 7.5 mg PO BID 05/28/24 12/18/24 History cetirizine 5 mg tablet 5 mg PO HS 05/28/24 12/18/24 History escitalopram oxalate 10 mg tablet 10 mg PO HS 05/28/24 12/18/24 History pantoprazole 40 mg tablet,delayed 40 mg PO HS 05/28/24 12/18/24 History release propylene glycol 0.6 % eye drops 1 drp ophthalmic (eye) QID PRN Dry 05/28/24 12/18/24 History (Systane Balance) Eyes [id number] 4 mg-folic acid 1 tab PO DAILY 12/02/24 12/18/24 History 200 mcg-vit K 25 mcg-lutein tablet ondansetron HCl 4 mg tablet 4 mg PO Q6HP PRN Nausea 12/02/24 12/18/24 History propranolol 10 mg tablet 10 mg PO BID 12/02/24 12/18/24 History trazodone 150 mg tablet 150 mg PO HS 12/02/24 12/18/24 History albuterol sulfate 0.63 mg/3 mL 0.63 mg inhalation Q4HP PRN 12/18/24 12/19/24 History solution for nebulization SHORTNESS OF AIR oxycodone 5 mg tablet 5 mg PO Q6H PRN Pain 12/18/24 12/18/24 History simethicone 125 mg chewable tablet 125 mg PO Q4H PRN bloating 12/18/24 12/18/24 History (Gas-X Extra Strength) midodrine 5 mg tablet 2.5 mg (1/2 x 5 mg) PO BID 30 days 12/19/24 Rx #30 tabs oxycodone 5 mg tablet 5 mg PO BID 12/19/24 12/19/24 History New Prescriptions to Start Prescriptions: Usman Cook Allergies Allergy/AdvReac Type Severity Reaction Status Date / Time Gadolinium-Containing Allergy Intermediate Other Verified 12/18/24 16:46 Contrast Medi hydralazine Allergy Unknown Other Verified 12/18/24 16:44 Discharge Plan Disposition Patient Disposition: Xfer SNF Condition: Fair Discharge Order Discharge Orders: Discharge Order (Routine); Ordered 12/19/24 Ordered By: Usman Gramajo Follow up Plan Prescriptions/Medication Reconciliation: New midodrine 5 mg Tablet 2.5 mg PO BID 30 Days Qty: 30 0RF Continued propranolol 10 mg tablet 10 mg PO BID trazodone 150 mg tablet 150 mg PO HS [id number] K-lut 4 mg iron-200 mcg-25 mcg tablet 1 tab PO DAILY ondansetron HCl 4 mg tablet 4 mg PO Q6HP PRN (Reason: Nausea) albuterol sulfate 0.63 mg/3 mL Solution For Nebulization 0.63 mg inhalation Q4HP PRN (Reason: SHORTNESS OF AIR) simethicone [Gas-X Extra Strength] 125 mg Tablet,Chewable 125 mg PO Q4H PRN (Reason: bloating) oxycodone 5 mg tablet 5 mg PO Q6H PRN (Reason: Pain) oxycodone 5 mg tablet 5 mg PO BID cetirizine 5 mg Tablet 5 mg PO HS pantoprazole 40 mg Tablet,Delayed Release (Dr/Ec) 40 mg PO HS buspirone 7.5 mg Tablet 7.5 mg PO BID escitalopram oxalate 10 mg Tablet 10 mg PO HS Systane Balance 0.6 % Drops 1 drp OPHTHALMIC (EYE) QID PRN (Reason: Dry Eyes) Problem Reconciliation Problems Reviewed?: Yes Patient Discharge Instructions Print Language: [place] Providers Primary Care Provider: Provider,Referral Admit Provider: Usman Gramajo Attending Provider: Usman Gramajo
--- NOTE | 2024-12-19 15:16 | PC.NURSE ---
PT LEFT WITH EMS AT 1500
== END 2024-12-19 15:00 | DRG 194 ==
LOC: ER 14:31 → ICU 14:36
PROVIDERS: Admitting Provider Student in an Organized Health Care Education/Training Program; Emergency Provider Emergency Medicine; Visit Provider Student in an Organized Health Care Education/Training Program
DX: J18.9 Pneumonia, unspecified organism (principal); C22.0 Liver cell carcinoma; N17.9 Acute kidney failure, unspecified; C78.00 Secondary malignant neoplasm of unspecified lung; E87.20 Acidosis, unspecified; I95.9 Hypotension, unspecified; F41.9 Anxiety disorder, unspecified; F32.A Depression, unspecified; K21.9 Gastro-esophageal reflux disease without esophagitis; Z66 Do not resuscitate; N18.9 Chronic kidney disease, unspecified; R09.02 Hypoxemia; R91.8 Other nonspecific abnormal finding of lung field; K70.31 Alcoholic cirrhosis of liver with ascites; I12.9 Hypertensive chronic kidney disease with stage 1 through stage 4 chronic kidney disease, or unspecified chronic kidney disease; E78.5 Hyperlipidemia, unspecified; F10.11 Alcohol abuse, in remission; Z51.5 Encounter for palliative care; Z79.899 Other long term (current) drug therapy; Z88.8 Allergy status to other drugs, medicaments and biological substances; Z91.041 Radiographic dye allergy status; Z90.49 Acquired absence of other specified parts of digestive tract; Z99.81 Dependence on supplemental oxygen; Z87.891 Personal history of nicotine dependence
CPT/HCPCS: 36415; 71045; 74177; 80053; 81001; 82803; 83605; 83735; 84436; 84443; 84484; 85025; 85610; 85730; 87040; 87081; 87086; 94640; 94761; 99291; J0696; J1650; J1885; J2405; J2543; J3372; J7030; J7050; J7120; Q9967